=== PATIENT | female | born 1945 | race Caucasian/White ===

== ENCOUNTER 2019-01-16 12:06 | Day surgery (SDC) | payer MEDICARE, OTHER ==
[~2019-01-16] VITALS: Wt 89.1 kg
[~2019-01-16 12:06] MED LIST: ALBU90OI INH; AMLO5 PO; Advil200 M1 PO; BENA20 PO; Dyazide 37.5-21 EACH PO; Hair, Skin & N1 EACH PO; LEVSOD50 PO; METO50ER PO; NASACORT10.8 ML NS; NYSTRITC TOP; PRAM.5; TRAZ150T57
--- NOTE | 2019-01-16 12:38 | NUR ---
01/16/19 1238 Genaro Mcdaniel History, Chart, Medications and Allergies reviewed before start of procedure.MONITOR INTACT WITH CONTINUOUS PULSE OXIMETRY AND INTERMITTENT BP.3-LEAD EKG REVIEWED WITH PHYSICIAN PRIOR TO START OF PROCEDURE.O2 VIA N/C INTACT THROUGHOUT SEDATION/PROCEDURE. Patient confirms NPO status and agrees with scheduled surgery.PATIENT DETERMINED TO BE ASA APPROPRIATE FOR PROPOFOL SEDATION PRIOR TO START OF PROCEDURE BY DR. NSELL.
--- NOTE | 2019-01-16 12:47 | NUR ---
History, Chart, Medications and Allergies reviewed before start of procedure. Patient states colon prep results clear. Patient States Post-Procedure ride home has been arranged.
--- NOTE | 2019-01-16 14:15 | NUR ---
Discharge instructions reviewed with patient. Patient verbalizes understanding. Copy given to patient to take home. Patient States Post-Procedure ride home has been arranged.
== END 2019-01-16 14:15 | disposition home or self-care (01) ==
LOC: ORSCMMR 12:06 → ORD 13:00 → ORSCMMR 13:00
PROVIDERS: Internal Medicine Gastroenterology
PROC: 0DBP8ZX Excision of Rectum, Via Natural or Artificial Opening Endoscopic, Diagnostic (ICD-10-PCS; principal; 2019-01-16 13:00)
PROC: 0DBN8ZX Excision of Sigmoid Colon, Via Natural or Artificial Opening Endoscopic, Diagnostic (ICD-10-PCS; principal; 2019-01-16 13:00)
DX: Z12.11 Encounter for screening for malignant neoplasm of colon (principal); Z80.0 Family history of malignant neoplasm of digestive organs; D12.5 Benign neoplasm of sigmoid colon; D12.8 Benign neoplasm of rectum; K57.30 Diverticulosis of large intestine without perforation or abscess without bleeding; K64.8 Other hemorrhoids; I10 Essential (primary) hypertension; E03.9 Hypothyroidism, unspecified; Z87.891 Personal history of nicotine dependence; E66.01 Morbid (severe) obesity due to excess calories; Z68.38 Body mass index [BMI] 38.0-38.9, adult
CPT/HCPCS: 88305; J2250; J2704; J7120

== ENCOUNTER → 2019-12-06 | Outpatient (CLI) | payer MEDICARE, OTHER ==
[2019-12-07 13:19] LABS: Stool Occult Bld Immuno 1 Negative (NEGATIVE)
== END | disposition home or self-care (01) ==
LOC: LAB SHORT 10:17 → LAB EV 10:17
PROVIDERS: Internal Medicine Gastroenterology
DX: Z09 Encounter for follow-up examination after completed treatment for conditions other than malignant neoplasm (principal); Z86.010 Personal history of colon polyps
CPT/HCPCS: G0328

== ENCOUNTER 2020-01-21 09:29 | Day surgery (SDC) | payer MEDICARE, OTHER ==
[2020-01-21 11:12] LABS: Performing Lab VERACYTE; Test Name FNA
== END 2020-01-21 22:46 | disposition home or self-care (01) ==
LOC: US 09:29
PROVIDERS: Internal Medicine
DX: E04.1 Nontoxic single thyroid nodule (principal)
CPT/HCPCS: 10005

== ENCOUNTER 2021-11-10 12:44 | Inpatient (IN) | payer OTHER ==
[~2021-11-10] VITALS: Ht 162.6 cm; Wt 106.6 kg
[2021-11-10 13:25] LABS: PCO2 Venous 65.9 mmHg (38-42); pH Blood Venous 7.25 (7.34-7.37)
[2021-11-10 13:26] LABS: Base Excess Venous 1.5 mmol/L
[2021-11-10 13:30] LABS: BASOPHILS ABSOLUTE AUTO 0.06 K/mm3 (0.00-0.23); BASOPHILS PERCENT AUTO 0 % (0-2); EOSINOPHILS ABSOLUTE AUTO 0.02 K/mm3 (0.00-0.68); EOSINOPHILS PERCENT AUTO 0 % (0-6); Hematocrit 37.5 % (33.0-51.0); Hemoglobin 11.1 g/dL (11.5-16.0); IMMATURE GRAN ABSOLUTE AUTO 0.25 K/mm3 (0.00-0.10); IMMATURE GRAN PERCENT AUTO 2 % (0-1); LYMPHOCYTES ABSOLUTE AUTO 2.02 K/mm3 (0.84-5.20); LYMPHOCYTES PERCENT AUTO 14 % (21-46); MONOCYTES ABSOLUTE AUTO 0.66 K/mm3 (0.16-1.47); MONOCYTES PERCENT AUTO 4 % (4-13); Mean Corpuscular HGB 28.9 pg (26.0-34.0); Mean Corpuscular HGB Conc 29.6 g/dL (31.5-36.5); Mean Corpuscular Volume 98 fL (80-100); Mean Platelet Volume 10.7 fL (9.1-12.4); NEUTROPHILS ABSOLUTE AUTO 11.89 K/mm3 (1.96-9.15); NEUTROPHILS PERCENT AUTO 80 % (41-73); NRBC ABSOLUTE 0.09 K/mm3 (0.00-0.02); NRBC Auto 0.6 /100 WBC (0.0-0.2); Platelet Count 340 K/mm3 (150-400); RDW Coefficient Variation 14.3 % (11.7-14.2); RDW Standard Deviation 50.8 fL (35.1-46.3); Red Blood Cell Count 3.84 M/mm3 (3.80-5.20)
[2021-11-10 13:46] LABS: Alanine Aminotransfer (ALT/SGP 612 U/L (12-78); Albumin, Blood 3.1 g/dL (3.4-5.0); Albumin/Globulin Ratio 0.9 (0.8-1.8); Alk Phos 85 U/L (50-136); Anion Gap 4 mmol/L (6-16); Aspartate Aminotrans (AST/SGOT 762 U/L (12-37); Bilirubin, Total 0.6 mg/dL (0.1-1.0); Blood Urea Nitrogen 23 mg/dL (8-24); Bun/Creatinine Ratio 12.7 (12.0-20.0); CO2, Blood 29 mmol/L (21-32); Calcium, Blood 7.8 mg/dL (8.5-10.1); Chloride, Blood 106 mmol/L (98-108); Creatinine, Blood 1.81 mg/dL (0.40-1.00); Globulin, Blood 3.5 g/dL (2.2-4.0); Glomerular Filtration Rate 27 (60-); Glucose, Blood 150 mg/dL (70-99); Potassium, Blood 5.3 mmol/L (3.5-5.5); Sodium, Blood 139 mmol/L (136-145); Total Protein, Blood 6.6 g/dL (6.4-8.2)
[2021-11-10 13:46] LABS: U Amphetamine Screen Not Detected; U Methamphetamine Screen DETECTED
[2021-11-10 13:47] LABS: U Barbituate Screen Not Detected; U Benzodiazapine Screen Not Detected; U Buprenorphine Screen Not Detected; U Cannabinoids Screen Not Detected; U Cocaine Screen Not Detected; U Methadone Screen Not Detected; U Opiates Screen DETECTED; U Oxycodone Screen DETECTED; U Phencyclidine Screen Not Detected; U Propoxyphene Screen Not Detected
[2021-11-10 13:54] LABS: Ethanol (Alcohol), Blood, Med <3 mg/dL
[2021-11-10 14:18] LABS: Source, Urine Straight Cath
[2021-11-10] MEDS ORDERED: BENAZEPRIL HCL40 M1 PO (14:24)
[2021-11-10] MEDS ORDERED: AMLO10 PO (14:24)
[2021-11-10 14:31] LABS: Appearance, Urine Hazy (Clear); Bilirubin, Urine Neg (Neg); Blood, Urine Neg (Neg); Color, Urine Yellow (P-Yellow); Glucose Qualitative, Urine Neg (Neg); Ketones, Urine Neg (Neg); Leukocyte Esterase, Urine Neg (Neg); Nitrite, Urine Neg (Neg); Protein, Urine 1+ (Neg); Specific Gravity, Urine 1.025 (1.003-1.022); Urobilinogen, Urine NORM (Normal)
[2021-11-10 14:47] LABS: Bacteria Many /hpf; Squamous Epithelial Cells Mod /hpf (Few)
[2021-11-10 15:45] LABS: Base Excess Venous 1.3 mmol/L; Bicarbonate Venous 24.5 mmol/L (24.0-30.0); PCO2 Venous 63.8 mmHg (38-42); pH Blood Venous 7.26 (7.34-7.37)
[2021-11-10 17:33] LABS: Source, Urine Foley catheter
[2021-11-10 17:45] LABS: Appearance, Urine Cloudy (Clear); Bilirubin, Urine Neg (Neg); Blood, Urine 2+ (Neg); Color, Urine Yellow (P-Yellow); Glucose Qualitative, Urine Neg (Neg); Ketones, Urine Neg (Neg); Leukocyte Esterase, Urine 1+ (Neg); Nitrite, Urine Neg (Neg); Protein, Urine 2+ (Neg); Specific Gravity, Urine 1.025 (1.003-1.022); Urobilinogen, Urine 1+ (Normal)
[2021-11-10 18:10] LABS: Amorphous Light (0-Heavy); Bacteria Many /hpf; Granular Casts 0-2 /lpf (0); Hyaline Casts 0-2 /lpf (0-2); Squamous Epithelial Cells Many /hpf (Few)
--- NOTE | 2021-11-10 18:39 | NUR ---
PT TO ICU ROOM 7 FROM ED. PT ARRIVES ON BIPAP 07/24, 30%. PT ALERT TO VERBAL STIMULATION, ALERT TO SELF/SITUATION, ABLE TO FOLLOW COMMANDS. PT HAS BREANNA DRAIN TO MIDLINE BACK WITH SANGUINEOUS FLUID, DRESSING CHANGED D/T ROZINA BLOOD SOAKED THROUGH. LOW MIDLINE INCISION FROM LUMBAR FUSION (S1-L4) ON 11/09/21, DRESSING C/D/I. ROPIVACAINE PUMP TO MIDBACK. PER PT'S DAUGHTER AND ADMITTING DOCTORS PT HAD OUTPATIENT LUMBAR FUSION SURGERY YESTERDAY. DAUGHTER INSTRUCTED BY DR. ABDI ([facility]) TO REMOVE BREANNA DRAIN AND ROPIVACAINE PUMP ON 11/15 AND COVER INCISION "WITH BANDAID". 2+PITTING EDEMA TO BILATERAL FEET AND PERIORBITAL, PER PT'S DAUGHTER PT HAS HAD FACIAL SWELLING FOLLOWING HER SURGERY YESTERDAY. TEMP MONAHAN PLACED, CLOUDY URINARY OUTPUT. PT FEBRILE, TMAX 100.4.
[2021-11-10 19:17] LABS: Base Excess Venous 0.3 mmol/L; Bicarbonate Venous 24.7 mmol/L (24.0-30.0); PCO2 Venous 40.1 mmHg (38-42); PO2 Venous 158 mmHg (38-42)
[2021-11-10 20:21] LABS: Albumin, Blood 2.8 g/dL (3.4-5.0); Bilirubin, Total 0.3 mg/dL (0.1-1.0); Calcium, Blood 7.1 mg/dL (8.5-10.1); Globulin, Blood 2.9 g/dL (2.2-4.0); Potassium, Blood 4.4 mmol/L (3.5-5.5); Total Protein, Blood 5.7 g/dL (6.4-8.2)
--- NOTE | 2021-11-10 21:22 | NUR ---
ASSUMED CARE OF MERRITT AT 1900, SHE WAS LYING IN BED WITH MOANING RESPIRATIONS, ON NASAL CANNULA AT 5L. BACK WITH DRESSING C/D/I AND BREANNA DRAIN IN PLACE. ROPIVICAINE PAIN PUMP IN PLACE, BALL FULL. PT TRYING TO ASSIST WITH CARE, ASKING ABOUT URINATION, REMINDED SHE HAS A CATHETER. THE PRECEDEX WAS STARTED @ 1946 ON 0.2, BIPAP 12/5 RATE 12 40% AT 2019. PT CALLED AT 2029 TO SAY SHE WANTED THE MASK OFF, PRECEDEX INCREASED TO 0.4 TO HELP. PT CALLED AGAIN AT 2039 TO SAY THAT SHE DEFINITELY WANTED THE MASK OFF. CALLED TO R/T TACO TO UPDATE. PT IS ABLE TO ANSWER QUESTIONS APPROPRIATELY, GETS CONFUSED TO WHETHER SHE IS IN [place] OR [place], HER SURGERY WAS IN [place] YESTERDAY. REORIENTS EASILY. ASSISTS WITH TURNING AND CARE.
--- NOTE | 2021-11-10 23:46 | NUR ---
MERRITT REMAINS SLEEPY, BUT ADMITTEDLY ANXIOUS. ON PRECEDEX AT 0.4MCG/KG, SATS DROPPING WHEN SHE SLEEPS, WON'T LET US PUT ON THE BIPAP, BUT NRB @ 10L PLACED FOR LOW 80%. SHE IS ON HER BACK, BY HER REQUEST. CONTINUES WITH SWABS FOR MOISTENING HER MOUTH. LUNGS REMAIN WITH SCATTERED WHEEZE EXPIRATORY AND RHONCHI ON INSPIRATION.
--- NOTE | 2021-11-11 00:56 | NUR ---
MERRITT CONTINUES TO TRY TO REMOVE HER OXYGEN. SHE KEEPS TELLING ME SHE WANTS TO GO HOME. THE BED IS IN THE CHAIR POSITION AND SHE IS HAPPY WITH THAT. SHE HAS THE CALL LIGHT IN HER LAP. SHE HAS AUDIBLE RALES, COUGH THAT IS NON PRODUC TIVE. SHE CONTINUES TO BE RESTLESS, SAYS THAT SHE HAS RESTLESS LEG SYNDROME. POSITIVE REINFORCEMENT AND THERAPEUTIC LISTENING.
--- NOTE | 2021-11-11 03:17 | NUR ---
PT BOTHERED BY HER RESTLESS LEGS, SAYS SHE USES SALON PAS CREAM AT HOME. CHECKED WITH PHARMACY, WE DON'T HAVE ANYTHING OF THAT NATURE, ASKED HER IF SHE USES A MENTHOL CREAM AND SHE DENIED. ASSISTING WITH HER REPOSITIONING OFTEN. EMPTIED HER BREANNA DRAIN, FRESH RED BLOOD 50ML.
[2021-11-11 03:20] LABS: BASOPHILS ABSOLUTE AUTO 0.03 K/mm3 (0.00-0.23); BASOPHILS PERCENT AUTO 0 % (0-2); EOSINOPHILS ABSOLUTE AUTO 0.07 K/mm3 (0.00-0.68); EOSINOPHILS PERCENT AUTO 1 % (0-6); Hematocrit 29.6 % (33.0-51.0); Hemoglobin 9.1 g/dL (11.5-16.0); IMMATURE GRAN ABSOLUTE AUTO 0.07 K/mm3 (0.00-0.10); IMMATURE GRAN PERCENT AUTO 1 % (0-1); LYMPHOCYTES ABSOLUTE AUTO 1.82 K/mm3 (0.84-5.20); LYMPHOCYTES PERCENT AUTO 21 % (21-46); MONOCYTES ABSOLUTE AUTO 0.58 K/mm3 (0.16-1.47); MONOCYTES PERCENT AUTO 7 % (4-13); Mean Corpuscular HGB 29.7 pg (26.0-34.0); Mean Corpuscular HGB Conc 30.7 g/dL (31.5-36.5); Mean Corpuscular Volume 97 fL (80-100); Mean Platelet Volume 10.6 fL (9.1-12.4); NEUTROPHILS ABSOLUTE AUTO 6.05 K/mm3 (1.96-9.15); NEUTROPHILS PERCENT AUTO 70 % (41-73); NRBC ABSOLUTE 0.05 K/mm3 (0.00-0.02); NRBC Auto 0.6 /100 WBC (0.0-0.2); Platelet Count 193 K/mm3 (150-400); RDW Coefficient Variation 14.4 % (11.7-14.2); RDW Standard Deviation 50.1 fL (35.1-46.3); Red Blood Cell Count 3.06 M/mm3 (3.80-5.20); White Blood Cell Count 8.62 K/mm3 (4.00-11.30)
[2021-11-11 03:51] LABS: Albumin, Blood 2.6 g/dL (3.4-5.0); Albumin/Globulin Ratio 0.9 (0.8-1.8); Bilirubin, Total 0.4 mg/dL (0.1-1.0); Bun/Creatinine Ratio 15.5 (12.0-20.0); Calcium, Blood 7.1 mg/dL (8.5-10.1); Creatinine, Blood 1.55 mg/dL (0.40-1.00); Globulin, Blood 2.8 g/dL (2.2-4.0); Potassium, Blood 4.2 mmol/L (3.5-5.5); Total Protein, Blood 5.4 g/dL (6.4-8.2)
[2021-11-11 03:58] LABS: Base Excess Venous 0 mmol/L; Bicarbonate Venous 23.7 mmol/L (24.0-30.0); PCO2 Venous 65.8 mmHg (38-42); PO2 Venous 67.3 mmHg (38-42)
[2021-11-11 03:59] LABS: pH Blood Venous 7.23 (7.34-7.37)
--- NOTE | 2021-11-11 04:01 | NUR ---
MERRITT SWITCHED TO HIFL NC AT 12L PER HER REQUESTS. SHE SAYS THE MASK IS MISERABLE, SHE HAS A STUFFY NOSE AND SHE CAN'T BREATHE WITH THE MASK. SHE IS TOLERATING THE HFNC MUCH BETTER, ALTHOUGH SHE WILL HOLD HER BREATH, ADMITTEDLY AND THEN HER SATS DROP TIL SHE IS BOTHERED BY THIS RN. BP REMAINS LABILE. COUGH CONTINUES, NON PRODUCTIVE. RESTLESSNESS CONTINUES. PRECEDEX CONTINUES AT 0.4MCG/KG.
--- NOTE | 2021-11-11 04:51 | NUR ---
CALL TO RELATED TO VBG RESULTS, INCREASING PRECEDEX TO 0.7MCG/KG AND PUTTING HER BACK ON BIPAP 07/24, RATE 12/ 40%. GAVE A DOSE OF FENTANYL FOR HER DISCOMFORT WELL. ASKED HER TO TRY TO WEAR THIS LONG POSSIBLE. RT TACO GAVE HER THE REASONS FOR THE BIPAP AND WHY SHE NEEDS TO WEAR IT LONG POSSIBLE.
--- NOTE | 2021-11-11 05:38 | NUR ---
PT TOLERATING THE BIPAP AT THIS TIME, DID NORIS AT ME TO GET SOMETHING FOR HER RESTLESS LEGS, WANTS TO CALL HER TO BRING IN HER HOME MED. I ASKED IF WE COULD WAIT A BIT LONGER SINCE IT IS SO EARLY IN THE MORNING. SHE AGREED. WILL CONTINUE TO MONITOR AND TREAT ACCORDINGLY.
--- NOTE | 2021-11-11 09:25 | NUR ---
FAMILY UPDATE/DR WALTERS PT DAUGHTER HOPE AND UPDATED AT BEDSIDE BY RN AND DR WALTERS. PT OFF BIPAP, PLACED ON 4L O2 NC. PRECEDEX PLACED ON STANDBY. PT TOLERATING WELL AND ENGAGING IN CONVERSATION. PT MADE PCU STATUS NOW. WILL CONTINUE TO MONITOR.
--- NOTE | 2021-11-11 09:44 | NUR ---
Spiritual Care Visit. Pt. requested spiritual care. Pt. is awake in bed with daughter present. Pt. welcomes my visit. Pt. is unsettled about her post-surgery ICU admittance. Listened empathetically and established rapport. Pt. verbalized her spiritual condition. Explored issuses of marcos and belief. Pt. displayed evidence of reduced stress. Prayed with Pt. Pt. and daughter both verbalize gratitude for the spiritual care visit.
--- NOTE | 2021-11-11 11:15 | NUR ---
TRANSFER TO PCU PT TAKEN TO PCU ROOM 5 VIA BED. REPORT CALLED AND ALL QUESTIONS ANSWERED. ALL PT BELONGINGS AND MEDS SENT WITH PT.
--- NOTE | 2021-11-11 18:49 | NUR ---
PCU ARRIVAL / SHIFT SUMMARY PT BROUGHT TO PCU-05 FROM ICU @ APPROX 1120. PT A&O X3. SPO2 > 92% ON 4L NC. MONITOR SHOWING SR-ST, HR 80s-130s. PT BP ELEVATED. PT RESTLESS IN BED, MOVING AROUND FREQUENTLY, TANGLING SELF IN CORDS. PT LUMBAR DRESSING REPLACED D/T BREANNA PUNCTURE SITE OOZING & PT FREQUENT REPOSITIONING SELF CAUSING DRESSING TO LOSE ADHERANCE. BREANNA DRAIN TO PT BACK W/ RED OUTPUT. ROPIVICAINE ON-Q PAIN PUMP IN PLACE TO PT's BACK. PT REPORTING PAIN 9-10/10 THIS SHIFT W/ BRIEF IMPROVEMENT TO 6/10 W/ PRN IV FENTANYL PER EMAR. CALL TO MD ISTRATE TO REPORT PT PAIN LEVEL & ELEVATED BP W/ MD ORDER FOR PO HOME BP MEDICATIONS & PRN PO HYDRALAZINE & INCREASE PRN IV FENTANYL FREQUENCY (SEE ORDERS). PT MONAHAN CATH IN PLACE, STATLOCK REPLACED D/T STATLOCK BREAKING DURING PT RESTLESSNESS. PT ADVANCED TO REGULAR DIET TODAY BY SPEECH THERAPY. PT TOLERATING PO INTAKE WELL. REPORT GIVEN TO CORD MAKER RN ASSUMING CARE OF PT.
--- NOTE | 2021-11-12 03:31 | NUR ---
ANGELY RN ON LUNCH; PATIENT CALLED TO REPORT PAIN IN BACK; FENTANYL NOT AVAILABLE AT THE TIME FOR ALMOST ANOTHER HOUR; CALL PLACED TO HOSPITALIST; ORDERS FOR PO OXYCODONE 5-10 MG Q4 PRN FOR MODERATE PAIN
--- NOTE | 2021-11-12 06:04 | NUR ---
SHIFT SUMMARY: PATIENT'S PAIN UNCONTROLLED OVERNIGHT. FENTANYL GIVEN Q2H WITH LAST DOSE GIVEN 02:35. PT REPORTS THAT IT DIDN'T HELP AND REQUESTED PO PAIN MEDS. AN ORDER FOR OXYCODONE WAS OBTAINED AND AFTER 2 HRS PATIENT WAS AGAIN STRUGGLING WITH UNBEARABLE PAIN. ALSO, THE ON-QUE PAIN PUMP CAME OUT AT APPROXIMATELY 01:30. ONE DOSE OF HYDRALAZINE WAS GIVEN EARLY IN SHIFT FOR ELEVATED BP PER ORDER AND BP WAS STABLE FOR THE REST OF THE NIGHT. PT HR INCREASES WITH PAIN AND IS WNL FOLLOWING MED MED ADMINISTRATION. PT CONTINUES TO EXHIBIT PERIORBITAL EDEMA. BREANNA DRAIN DRESSING WAS SATURATED AND CHANGED OVERNIGHT. PT REMAINED ALERT AND ORIENTED, RR WNL AND O2 SAT WNL ON 5L NC.
[2021-11-12 06:05] LABS: BASOPHILS ABSOLUTE AUTO 0.05 K/mm3 (0.00-0.23); BASOPHILS PERCENT AUTO 0 % (0-2); EOSINOPHILS ABSOLUTE AUTO 0.08 K/mm3 (0.00-0.68); EOSINOPHILS PERCENT AUTO 1 % (0-6); Hematocrit 30.6 % (33.0-51.0); Hemoglobin 9.3 g/dL (11.5-16.0); IMMATURE GRAN ABSOLUTE AUTO 0.24 K/mm3 (0.00-0.10); IMMATURE GRAN PERCENT AUTO 2 % (0-1); LYMPHOCYTES ABSOLUTE AUTO 1.49 K/mm3 (0.84-5.20); LYMPHOCYTES PERCENT AUTO 13 % (21-46); MONOCYTES ABSOLUTE AUTO 0.53 K/mm3 (0.16-1.47); MONOCYTES PERCENT AUTO 5 % (4-13); Mean Corpuscular HGB 29.1 pg (26.0-34.0); Mean Corpuscular HGB Conc 30.4 g/dL (31.5-36.5); Mean Corpuscular Volume 96 fL (80-100); Mean Platelet Volume 10.2 fL (9.1-12.4); NEUTROPHILS ABSOLUTE AUTO 8.92 K/mm3 (1.96-9.15); NEUTROPHILS PERCENT AUTO 79 % (41-73); NRBC ABSOLUTE 0.06 K/mm3 (0.00-0.02); NRBC Auto 0.5 /100 WBC (0.0-0.2); Platelet Count 207 K/mm3 (150-400); RDW Coefficient Variation 14.1 % (11.7-14.2); RDW Standard Deviation 49.1 fL (35.1-46.3); White Blood Cell Count 11.31 K/mm3 (4.00-11.30)
[2021-11-12 06:23] LABS: Alanine Aminotransfer (ALT/SGP 569 U/L (12-78); Albumin, Blood 2.7 g/dL (3.4-5.0); Albumin/Globulin Ratio 0.8 (0.8-1.8); Alk Phos 78 U/L (50-136); Anion Gap 8 mmol/L (6-16); Aspartate Aminotrans (AST/SGOT 365 U/L (12-37); Bilirubin, Total 0.4 mg/dL (0.1-1.0); Blood Urea Nitrogen 11 mg/dL (8-24); Bun/Creatinine Ratio 23.9 (12.0-20.0); CO2, Blood 28 mmol/L (21-32); Calcium, Blood 7.7 mg/dL (8.5-10.1); Chloride, Blood 108 mmol/L (98-108); Creatinine, Blood 0.46 mg/dL (0.40-1.00); Globulin, Blood 3.2 g/dL (2.2-4.0); Glomerular Filtration Rate >60 (60-); Glucose, Blood 111 mg/dL (70-99); Magnesium, Blood 2.1 mg/dL (1.6-2.4); Phosphorus, Blood 1.8 mg/dL (2.5-4.9); Potassium, Blood 3.7 mmol/L (3.5-5.5); Sodium, Blood 144 mmol/L (136-145); Total Protein, Blood 5.9 g/dL (6.4-8.2)
--- NOTE | 2021-11-12 11:02 | NUR ---
CALL TO NEUROSPINE OFFICE CALL MADE TO NEUROSPINE OFFICE OF DR ABDI TO REPORT PT PAIN PUMP NO LONGER INTACT. INDUSTRIAL GARAGE SERVICER PROVIDER BOBBI, STATING MEDICATION SHOULD HAVE BEEN ALMOST GONE AT THIS POINT & GAVE INSTRUCTION TO DISCARD MEDICATION/PUMP & DRESS 2 SITES W/ BANDAID. LOCAL HOSPITALIST, ISTRATE MADE AWARE OF PUMP NO LONGER IN PLACE WELL. CALL TO PHARMACY FOR PROPER MEDICATION/PUMP DISPOSAL & MEDICATION DISPOSED OF ACCORDINGLY W/ 2ND NURSE WITNESS.
--- NOTE | 2021-11-12 18:45 | NUR ---
SHIFT SUMMARY PT A&O X4. PT VSS. SPO2 > 92% ON 5L NC. MONITOR SHOWING SR-ST, HR 80's-110's. PT MEDICATED FOR BACK PAIN W/ PRN IV FENTANYL X1 & PRN PO OXYCODONE X2 THIS SHIFT PER EMAR/PT REQUEST W/ PT REPORT OF IMPROVEMENT. PT NO LONGER RESTLESS IN BED THIS SHIFT & PT ABLE TO SLEEP MORE SOUNDLY. PT FAMILY AT BEDSIDE INTERMITTENTLY T/O SHIFT. PT ABLE TO STAND AND AMBULATE TO CHAIR FOR BREAKFAST & LUNCH TODAY. BREANNA DRAIN TO PT BACK CONTINUES TO OOZE, REQUIRING DRESSING CHANGES X2 THIS SHIFT W/ PINK/RED DRAINAGE NOTED IN BREANNA DRAIN & ON DRESSING & PAD UNDER PT. PT PAIN PUMP DISPOSED OF THIS SHIFT (SEE PREVIOUS NOTE). NO OTHER EVENTS. WILL CONTINUE TO MONITOR & PROVIDE CARE UNTIL REPORT OFF TO RETAIL COORDINATOR RN.
--- NOTE | 2021-11-12 22:59 | NUR ---
2230- THIS RN ROUNDED ON PT AND FOUND PT HAD PULLED OUT BREANNA DRAIN. VITALS OBTAINED, NEURO ASSESSMENT COMPLETED AND WNL. PT REPORTS NO PAIN AND NO CHANGE IN SENSATION. NOTIFIED ON-CALL PROVIDER GISELE VUONG. ALSO NOTIFIED PROVIDER OF INCREASED O2 DEMANDS TO 8L FROM EARLIER IN SHIFT. NO NEW ORDERS AT THIS TIME.
[2021-11-13 04:34] LABS: BASOPHILS ABSOLUTE AUTO 0.04 K/mm3 (0.00-0.23); BASOPHILS PERCENT AUTO 0 % (0-2); EOSINOPHILS ABSOLUTE AUTO 0.15 K/mm3 (0.00-0.68); EOSINOPHILS PERCENT AUTO 2 % (0-6); Hematocrit 31.9 % (33.0-51.0); Hemoglobin 9.5 g/dL (11.5-16.0); IMMATURE GRAN ABSOLUTE AUTO 0.13 K/mm3 (0.00-0.10); IMMATURE GRAN PERCENT AUTO 1 % (0-1); LYMPHOCYTES ABSOLUTE AUTO 1.39 K/mm3 (0.84-5.20); LYMPHOCYTES PERCENT AUTO 14 % (21-46); MONOCYTES ABSOLUTE AUTO 0.53 K/mm3 (0.16-1.47); MONOCYTES PERCENT AUTO 5 % (4-13); Mean Corpuscular HGB 28.8 pg (26.0-34.0); Mean Corpuscular HGB Conc 29.8 g/dL (31.5-36.5); Mean Corpuscular Volume 97 fL (80-100); Mean Platelet Volume 10.4 fL (9.1-12.4); NEUTROPHILS ABSOLUTE AUTO 7.59 K/mm3 (1.96-9.15); NEUTROPHILS PERCENT AUTO 77 % (41-73); NRBC ABSOLUTE 0.05 K/mm3 (0.00-0.02); NRBC Auto 0.5 /100 WBC (0.0-0.2); Platelet Count 242 K/mm3 (150-400); RDW Coefficient Variation 14.3 % (11.7-14.2); RDW Standard Deviation 50.4 fL (35.1-46.3); White Blood Cell Count 9.83 K/mm3 (4.00-11.30)
[2021-11-13 04:52] LABS: Alanine Aminotransfer (ALT/SGP 424 U/L (12-78); Albumin, Blood 2.6 g/dL (3.4-5.0); Albumin/Globulin Ratio 0.8 (0.8-1.8); Alk Phos 86 U/L (50-136); Anion Gap 2 mmol/L (6-16); Aspartate Aminotrans (AST/SGOT 157 U/L (12-37); Bilirubin, Total 0.3 mg/dL (0.1-1.0); Blood Urea Nitrogen 8 mg/dL (8-24); Bun/Creatinine Ratio 18.5 (12.0-20.0); CO2, Blood 34 mmol/L (21-32); Calcium, Blood 7.9 mg/dL (8.5-10.1); Chloride, Blood 109 mmol/L (98-108); Creatinine, Blood 0.43 mg/dL (0.40-1.00); Globulin, Blood 3.2 g/dL (2.2-4.0); Glomerular Filtration Rate >60 (60-); Glucose, Blood 120 mg/dL (70-99); Magnesium, Blood 2.2 mg/dL (1.6-2.4); Phosphorus, Blood 2.2 mg/dL (2.5-4.9); Potassium, Blood 3.8 mmol/L (3.5-5.5); Sodium, Blood 145 mmol/L (136-145); Total Protein, Blood 5.8 g/dL (6.4-8.2)
--- NOTE | 2021-11-13 06:51 | NUR ---
SHIFT SUMMARY [id number] PT SLEPT WELL OVERNIGHT, LETHARGIC AT BEGINNING OF SHIFT BUT ALERTS TO VOICE AND ORIENTED. RESTLESS IN BED, SOME BACK PAIN AND PRNS GIVEN. ESCALATED FROM 5-8L HFNC OVERNIGHT AND REFUSING CPAP/BIPAP PER RT. PT ALSO PULLED OUT LUMBAR DRAIN WHEN ROLLING AROUND IN BED. ON-CALL PROVIDER NOTIFIED (SEE PREVIOUS NOTE BY THIS RN). VSS PER PT TREND, SR/ST ON TELEMETRY. WILL CONTINUE TO MONITOR AND PASS ON TO DAY RN
[2021-11-13] MEDS ORDERED: AMOCLA875 PO (12:11)
[2021-11-13] MEDS ORDERED: AZIT500 PO (12:12)
[2021-11-13] MEDS ORDERED: METO50ER PO (12:13)
[2021-11-13] MEDS ORDERED: ONDA4ODT MM (12:14)
[2021-11-13] MEDS ORDERED: OXYC5 PO (12:16)
[2021-11-13] MEDS ORDERED: Phospha 250 Ne250 MG PO (12:26)
[2021-11-13] MEDS ORDERED: PRAM.125 PO (12:28)
[2021-11-13] MEDS ORDERED: VISBIOME 112.51 EACH PO (12:29)
--- NOTE | 2021-11-13 13:59 | NUR ---
PT DISCHARGE TO HOME WITH DISCHARGE ORDERS, HOME HEALTH ORDERS SENT TO [facility], O2 EVAL DONE PT REQUIRING 3L OF O2 AT REST AND 5L WITH EXERTION SATS STAYS ABOVE 90%. BP SYSTLOIC WAS ELEVATED AT 180'S THIS MORNING AFTER MORNING BP MEDS WAS GIVEN AND PAIN MEDS SYSTOLIC WENT DOWN TO 150'S, DR BRIGHT AWARE. DRESSING ON BACK WAS CHANGED THIS MORNING WELL. DISCHARGE INSTRUCTIONS AND NEW MEDICATIONS DISCLOSED WITH THE DAUGHTER AT BEDSIDE AND PT WELL BOTH VERBALIZED UNDERSTANDING, PRESCRIPTIONS SENT TO [facility], NARCOTICS HARD SCRIPT SENT HOME WITH THE PT. BACK BRACE IN [place] WHEN PT OOB, CAN STAND AND AMBULATE WITH THE WALKER. NO OTHER ISSUES REPORTED PRIOR TO DISCHARGE. PT TO FF-UP WITH PCP WITHIN A WEEK AND PT HAS ALREADY UPCOMING BACK SURGERY APPT. ACCOMPANIED PT VIA WHEELCHAIR TO TRANSPORT, ALL BELONGINGS SENT WITH THE PT
[2021-11-15 00:08] LABS: HBSAG SCREEN Negative (Negative); HCV AB <0.1 (0.0-0.9); HEP A AB, IGM Negative (Negative); HEP B CORE AB, TOT Negative (Negative)
== END 2021-11-13 13:34 | disposition home health service (06) | DRG 871 ==
LOC: ER 12:44 → ICUE 16:46 → PCU 16:46 → ICUE 16:50 → PCU 11-11 11:33
PROVIDERS: Emergency Medicine; Family Medicine; Internal Medicine Critical Care Medicine; Nurse Practitioner Acute Care; ADMIT Internal Medicine
PROC: 3E03329 Introduction of Other Anti-infective into Peripheral Vein, Percutaneous Approach (ICD-10-PCS; principal; 2021-11-10)
PROC: 5A09357 Assistance with Respiratory Ventilation, Less than 24 Consecutive Hours, Continuous Positive Airway Pressure (ICD-10-PCS; 2021-11-10)
DX: A41.9 Sepsis, unspecified organism (principal); J18.9 Pneumonia, unspecified organism; J69.0 Pneumonitis due to inhalation of food and vomit; G93.41 Metabolic encephalopathy; R65.21 Severe sepsis with septic shock; J96.02 Acute respiratory failure with hypercapnia; N17.9 Acute kidney failure, unspecified; E87.2 Acidosis; Z68.42 Body mass index [BMI] 45.0-49.9, adult; J44.0 Chronic obstructive pulmonary disease with (acute) lower respiratory infection; Z66 Do not resuscitate; F11.10 Opioid abuse, uncomplicated; F15.10 Other stimulant abuse, uncomplicated; E66.01 Morbid (severe) obesity due to excess calories; J32.3 Chronic sphenoidal sinusitis; E83.39 Other disorders of phosphorus metabolism; Z98.1 Arthrodesis status; I10 Essential (primary) hypertension; R74.01 Elevation of levels of liver transaminase levels; E03.9 Hypothyroidism, unspecified; G25.81 Restless legs syndrome; K76.0 Fatty (change of) liver, not elsewhere classified; Z90.710 Acquired absence of both cervix and uterus; Z98.890 Other specified postprocedural states; Z79.51 Long term (current) use of inhaled steroids; Z79.899 Other long term (current) drug therapy
CPT/HCPCS: 36415; 51703; 70450; 71045; 80053; 81001; 82140; 82803; 82947; 83605; 83735; 83880; 84100; 84145; 84443; 85025; 86140; 86704; 86708; 86803; 87040; 87086; 87340; 92610; 93005; 93010; 94660; 94760; 94761; 94762; 96365; 96375; 99285-25; A9270; C1751; G0480; J0295; J0456; J2543; J3010; J7030; J7050; J7060; J7120

== ENCOUNTER 2021-11-18 10:53 | Emergency (ER) | payer OTHER ==
[~2021-11-18] VITALS: Ht 152.4 cm; Wt 108.9 kg
[~2021-11-18 10:53] MED LIST changes: +AMLO10 PO; +AMOCLA875 PO; +AZIT500 PO; +BENAZEPRIL HCL40 M1 PO; +ONDA4ODT MM; +OXYC5 PO; +PRAM.125 PO; +Phospha 250 Ne250 MG PO; +VISBIOME 112.51 EACH PO
[2021-11-18 11:46] LABS: BASOPHILS ABSOLUTE AUTO 0.06 K/mm3 (0.00-0.23); BASOPHILS PERCENT AUTO 1 % (0-2); EOSINOPHILS ABSOLUTE AUTO 0.21 K/mm3 (0.00-0.68); EOSINOPHILS PERCENT AUTO 2 % (0-6); Hematocrit 34.9 % (33.0-51.0); Hemoglobin 10.5 g/dL (11.5-16.0); IMMATURE GRAN ABSOLUTE AUTO 0.16 K/mm3 (0.00-0.10); IMMATURE GRAN PERCENT AUTO 2 % (0-1); LYMPHOCYTES PERCENT AUTO 24 % (21-46); MONOCYTES ABSOLUTE AUTO 0.69 K/mm3 (0.16-1.47); MONOCYTES PERCENT AUTO 7 % (4-13); Mean Corpuscular HGB 28.6 pg (26.0-34.0); Mean Corpuscular HGB Conc 30.1 g/dL (31.5-36.5); Mean Corpuscular Volume 95 fL (80-100); Mean Platelet Volume 10.4 fL (9.1-12.4); NEUTROPHILS ABSOLUTE AUTO 6.85 K/mm3 (1.96-9.15); NEUTROPHILS PERCENT AUTO 65 % (41-73); Platelet Count 344 K/mm3 (150-400); RDW Coefficient Variation 14.3 % (11.7-14.2); RDW Standard Deviation 49.4 fL (35.1-46.3); Red Blood Cell Count 3.67 M/mm3 (3.80-5.20); White Blood Cell Count 10.47 K/mm3 (4.00-11.30)
[2021-11-18 12:14] LABS: Alanine Aminotransfer (ALT/SGP 76 U/L (12-78); Albumin, Blood 2.9 g/dL (3.4-5.0); Albumin/Globulin Ratio 0.8 (0.8-1.8); Alk Phos 85 U/L (50-136); Anion Gap 8 mmol/L (6-16); Aspartate Aminotrans (AST/SGOT 20 U/L (12-37); Bilirubin, Total 0.3 mg/dL (0.1-1.0); Blood Urea Nitrogen 6 mg/dL (8-24); Bun/Creatinine Ratio 11.2 (12.0-20.0); CO2, Blood 36 mmol/L (21-32); Calcium, Blood 8.8 mg/dL (8.5-10.1); Chloride, Blood 97 mmol/L (98-108); Creatinine, Blood 0.54 mg/dL (0.40-1.00); Globulin, Blood 3.6 g/dL (2.2-4.0); Glomerular Filtration Rate >60 (60-); Glucose, Blood 111 mg/dL (70-99); Potassium, Blood 3.9 mmol/L (3.5-5.5); Sodium, Blood 141 mmol/L (136-145); Total Protein, Blood 6.5 g/dL (6.4-8.2)
[2021-11-18 14:41] LABS: Source, Urine Clean Catch
[2021-11-18 14:44] LABS: Appearance, Urine Clear (Clear); Bilirubin, Urine Neg (Neg); Blood, Urine Neg (Neg); Color, Urine Yellow (P-Yellow); Glucose Qualitative, Urine Neg (Neg); Ketones, Urine Neg (Neg); Leukocyte Esterase, Urine Neg (Neg); Nitrite, Urine Neg (Neg); Protein, Urine Neg (Neg); Specific Gravity, Urine 1.015 (1.003-1.022); Urobilinogen, Urine NORM (Normal)
== END 2021-11-18 15:40 | disposition home or self-care (01) ==
LOC: ER 10:53
PROVIDERS: Physician Assistant
DX: C34.91 Malignant neoplasm of unspecified part of right bronchus or lung (principal); Z79.899 Other long term (current) drug therapy
CPT/HCPCS: 36415; 71045; 71260; 80053; 81003; 83735; 85025; 99285-25; A9270; Q9967

== ENCOUNTER 2022-01-10 18:01 | Emergency (ER) | payer OTHER ==
[~2022-01-10] VITALS: Ht 154.9 cm; Wt 90.3 kg
[2022-01-10 18:43] LABS: BASOPHILS ABSOLUTE AUTO 0.06 K/mm3 (0.00-0.23); BASOPHILS PERCENT AUTO 1 % (0-2); EOSINOPHILS ABSOLUTE AUTO 0.25 K/mm3 (0.00-0.68); EOSINOPHILS PERCENT AUTO 2 % (0-6); Hematocrit 41.7 % (33.0-51.0); Hemoglobin 13.5 g/dL (11.5-16.0); IMMATURE GRAN ABSOLUTE AUTO 0.07 K/mm3 (0.00-0.10); IMMATURE GRAN PERCENT AUTO 1 % (0-1); LYMPHOCYTES ABSOLUTE AUTO 3.33 K/mm3 (0.84-5.20); LYMPHOCYTES PERCENT AUTO 31 % (21-46); MONOCYTES ABSOLUTE AUTO 0.54 K/mm3 (0.16-1.47); MONOCYTES PERCENT AUTO 5 % (4-13); Mean Corpuscular HGB 27.6 pg (26.0-34.0); Mean Corpuscular HGB Conc 32.4 g/dL (31.5-36.5); Mean Corpuscular Volume 85 fL (80-100); Mean Platelet Volume 10.1 fL (9.1-12.4); NEUTROPHILS ABSOLUTE AUTO 6.59 K/mm3 (1.96-9.15); NEUTROPHILS PERCENT AUTO 61 % (41-73); Platelet Count 392 K/mm3 (150-400); RDW Coefficient Variation 14.7 % (11.7-14.2); Red Blood Cell Count 4.89 M/mm3 (3.80-5.20); White Blood Cell Count 10.84 K/mm3 (4.00-11.30)
[2022-01-10 19:03] LABS: Albumin, Blood 3.8 g/dL (3.4-5.0); Bilirubin, Total 0.5 mg/dL (0.1-1.0); Bun/Creatinine Ratio 40.2 (12.0-20.0); Calcium, Blood 9.3 mg/dL (8.5-10.1); Creatinine, Blood 0.65 mg/dL (0.40-1.00); Potassium, Blood 4.1 mmol/L (3.5-5.5); Total Protein, Blood 7.8 g/dL (6.4-8.2)
[2022-01-10 19:18] LABS: Source, Urine Clean Catch
[2022-01-10 19:24] LABS: Appearance, Urine Clear (Clear); Bilirubin, Urine Neg (Neg); Blood, Urine Neg (Neg); Color, Urine Yellow (P-Yellow); Glucose Qualitative, Urine Neg (Neg); Ketones, Urine Neg (Neg); Leukocyte Esterase, Urine Neg (Neg); Nitrite, Urine Neg (Neg); Protein, Urine 1+ (Neg); Urobilinogen, Urine NORM (Normal)
[2022-01-10] MEDS ORDERED: METPRE4DP PO (21:34)
[2022-01-10] MEDS ORDERED: Robaxin750 MG PO (21:34)
[2022-01-10] MEDS ORDERED: OXYACE7.5T PO (21:34)
== END 2022-01-10 21:48 | disposition home or self-care (01) ==
LOC: ER 18:01
PROVIDERS: Physician Assistant
DX: M54.50 Low back pain, unspecified (principal); Z79.899 Other long term (current) drug therapy; Z98.890 Other specified postprocedural states
CPT/HCPCS: 36415; 72100; 80053; 85025; A9270; J1100; J1170

== ENCOUNTER 2022-01-29 14:27 | Emergency (ER) | payer OTHER ==
[~2022-01-29] VITALS: Ht 154.9 cm; Wt 86.2 kg
[~2022-01-29 14:27] MED LIST changes: +METPRE4DP PO; +OXYACE7.5T PO; +Robaxin750 MG PO
== END 2022-01-29 18:10 | disposition home or self-care (01) ==
LOC: ER 14:27
DX: M48.54XA Collapsed vertebra, not elsewhere classified, thoracic region, initial encounter for fracture (principal); M54.40 Lumbago with sciatica, unspecified side; Z79.899 Other long term (current) drug therapy
CPT/HCPCS: J1885

== ENCOUNTER 2022-02-02 10:33 | Inpatient (IN) | payer OTHER ==
[~2022-02-02] VITALS: Ht 154.9 cm; Wt 87.6 kg
[2022-02-02 13:55] LABS: Influenza A, PCR NEGATIVE (NEGATIVE); Influenza B, PCR NEGATIVE (NEGATIVE); Resp Syncytial Virus, PCR NEGATIVE (NEGATIVE); SARS-Cov-2 (COVID-19) PCR, MMC NEGATIVE (NEGATIVE)
[2022-02-02 15:02] LABS: BASOPHILS ABSOLUTE AUTO 0.04 K/mm3 (0.00-0.23); BASOPHILS PERCENT AUTO 1 % (0-2); EOSINOPHILS ABSOLUTE AUTO 0.17 K/mm3 (0.00-0.68); EOSINOPHILS PERCENT AUTO 2 % (0-6); Hematocrit 40.4 % (33.0-51.0); Hemoglobin 12.4 g/dL (11.5-16.0); IMMATURE GRAN ABSOLUTE AUTO 0.02 K/mm3 (0.00-0.10); IMMATURE GRAN PERCENT AUTO 0 % (0-1); LYMPHOCYTES ABSOLUTE AUTO 2.05 K/mm3 (0.84-5.20); LYMPHOCYTES PERCENT AUTO 26 % (21-46); MONOCYTES ABSOLUTE AUTO 0.63 K/mm3 (0.16-1.47); MONOCYTES PERCENT AUTO 8 % (4-13); Mean Corpuscular HGB 27.3 pg (26.0-34.0); Mean Corpuscular HGB Conc 30.7 g/dL (31.5-36.5); Mean Corpuscular Volume 89 fL (80-100); Mean Platelet Volume 10.3 fL (9.1-12.4); NEUTROPHILS ABSOLUTE AUTO 4.99 K/mm3 (1.96-9.15); NEUTROPHILS PERCENT AUTO 63 % (41-73); Platelet Count 335 K/mm3 (150-400); RDW Coefficient Variation 15.6 % (11.7-14.2); RDW Standard Deviation 50.6 fL (35.1-46.3); Red Blood Cell Count 4.54 M/mm3 (3.80-5.20)
[2022-02-02 15:24] LABS: Albumin/Globulin Ratio 0.9 (0.8-1.8); Bilirubin, Total 0.3 mg/dL (0.1-1.0); Bun/Creatinine Ratio 22.6 (12.0-20.0); Calcium, Blood 8.4 mg/dL (8.5-10.1); Creatinine, Blood 0.53 mg/dL (0.40-1.00); Globulin, Blood 3.3 g/dL (2.2-4.0); Potassium, Blood 2.6 mmol/L (3.5-5.5); Total Protein, Blood 6.3 g/dL (6.4-8.2)
--- NOTE | 2022-02-02 19:26 | NUR ---
SHIFT SUMMARY PATIENT ADMITTED FROM ER FOR INTRACTABLE BACK PAIN. ADMISSION DOCUMENTATION COMPLETED. PUREWICK PLACED. POTASSIUM LOW, MEDICATED PER OCT. RECEIVING IV FLUIDS/ C/O BACK PAIN, MEDICATED PER OCT. ON CONTINUOUS PULSE OX SATING MID 90S ON 2L NC. WHEN NC REMOVED SATS IMMEDIATELY BEGIN TO DROP. VSS. REPORT GIVEN TO ONCOMING RN.
--- NOTE | 2022-02-03 02:48 | NUR ---
PT IS UNABLE TO BE CALMED. SHE IS THRASHING AROUND IN BED. WILL NOT LET STAFF ATTEMPT TO HELP REPOSITION HER OR CHECK HER BRIED. PUREWICK STILL IN PLACE. MEDICATIONS HAVE BEEN GIVEN PER EMAR AND DR HAS BEEN CALLED REGARDING HER EMOTIONAL STATES. ATIVAN GIVEN HAS CAUSED HALLUCINATIONS. PT HAS BECOME QUIETER, BUT IS STILL THRASHING AROUND IN BED AND MOANING. WILL CONTINUE TO MEDICATE PER OCT.
--- NOTE | 2022-02-03 05:14 | NUR ---
SHIFT SUMMARY PT HAS BEEN CRYING OUT IN [AIN THE ENTIRE NIGHT. SHE HAS BEEN MEDICATED WITH ALL MEDICATIONS AVAILABLE PER MAR INCLUDING ONE TIME ATIVAN AND NON SEEMED TO MAKE A DIFFERENCE. THE ATIVAN DID CAUSE HER TO HALLUCINATE AND SHE WAS UNABLE TO REMEMEBR WHERE SHE WAS OR WHAT WAS HAPPENING. SHE HAS BEEN WRITHING IN PAIN IN BED ALL NIGHT UNABLE TO GET COMFORTABLE. IS NOTIFIED, BUT CANNOT PROVIDE ANY OTHER ORDER FOR PAIN ADN RESPIRATIONS DECREASE WITH INCREASED PAIN MEDS. CURRENTLY STILL MEDICATION PER OCT. CALL LIGHT WITHIN REACH
--- NOTE | 2022-02-03 19:07 | NUR ---
SHIFT SUMMARY PATIENT A&OX4. C/O SEVERE PAIN, MEDICATED MULTIPLE TIMES T/O SHIFT WITH VERY LITTLE RELIEF. INCONT OF URINE, PUREWICK IN PLACE. PT WORKED WITH PATIENT. REPORT GIVEN TO ONCOMING RN.
--- NOTE | 2022-02-04 04:40 | NUR ---
SHIFT SUMMARY PT HAS BEEN AB;E TO REST MORE TONIGHT THAN THE NIGHT BEFORE. SHE WAS ONLY MEDICATED 2 TIMES FOR PAIN. PT IS ON 4L SATTING 6%, BUT HAS TROUBLE KEEPING HER NC IN HER NOSE. SHE WILL BECOME CONFUSED AND REMOVE THEM AND THE BI OX PROBE. SHE MUST BE ENCOURAGED TO KEEP THEM ON. PT STILL CONTINUE TO SOAXK THROUGH BRIEFS AND MVOES SO MUCH WHILE IN BED THAT HER PUREWICK AND BRIEF COME OFF AND SHE SAOKS THE MATTRESS. EVEN WITH ABSORBANT PADS IN THE BRIEF AND UNDER HER SHE CAN STILL MOVE OFF OF THEM. NEEDS FRQUENT MONITORING TO MAKE SURE SHE IS STILL WEARING ALL NECESSARY LINES. CALL LIGHT WITHIN REACH
[2022-02-04 08:42] LABS: Anion Gap 10 mmol/L (6-16); Blood Urea Nitrogen 8 mg/dL (8-24); Bun/Creatinine Ratio 23.5 (12.0-20.0); CO2, Blood 31 mmol/L (21-32); Calcium, Blood 9.1 mg/dL (8.5-10.1); Chloride, Blood 103 mmol/L (98-108); Creatinine, Blood 0.34 mg/dL (0.40-1.00); Glomerular Filtration Rate 105 (60-); Glucose, Blood 101 mg/dL (70-99); Sodium, Blood 144 mmol/L (136-145)
--- NOTE | 2022-02-04 14:21 | NUR ---
Spoke with Primary RN Christophe and discussed case. Flexeril added to regimen and pain medication will be offered more frequent to assist with pain control. Pt resting in bed and is A&OX4. Pt reports 6/10 pain in her back. She reports muscle spasms in her back are contributing towards her pain. She reports the Flexeril is starting to kick in and feels their is some benefit. Pt reports living at home with her . Pt reports having 10 children, 5 children are her's and 5 children are her husbands. She reports half live local and the other half are scattered. Continued therapeutic listening. Suggested in between pain regimen trialing heat to assist with relaxing the muscles. Pt reports prior to her fall she was ambulatory and independent of her ADLs and now can not get out of bed due to the pain. Ended visit to allow Pt to rest. Pt agreeable for this RN to return tomorrow. Palliative care will F/U for supportive visits and symptom management.
--- NOTE | 2022-02-04 18:56 | NUR ---
SUMMARY- PT A/O X3-4. BEDREST, REFUSING ALL CARE. ONLY LAYS ON THE L SIDE NEEDS TO TOOL DESIGN DRAFTSPERSON THE SIDE RAIL FOR COMFORT. ADJUSTED MEDS ADDING FLEXORIL IN ADDIDTION TO PERCOCET 4 AND TORODOL Q6. PAIN HAS IMPROVED, PT STATES NOW A 5/10. PT IS MORE CALM AND TALKING, TAKING IN DINNER AND PLEASANT WITH THIS PM. THE MORNING SHE WAS VERY IRRITABLE. PT ONLY ALLOWED INCONT CHANGE ONCE AT 1500. SKIN INTACT. WILL REPORT TO CRUZ MTZ.
--- NOTE | 2022-02-05 04:03 | NUR ---
SHIFT SUMMARY PT IS DOING MUCH BETTER IS REGARDS TO PAIN THIS EVENING. SHE IS ABLE TO GET SLEEP AND ONLY WAKES UP OCCASIONALLY TO ASK TO BE REPOSITIONED. PER MD REQUEST PT IS MEDICATED EVERY 4 HRS WITH A PAIN RELIEVER TO HELP THE PAIN FROM GETTING OUT OF CONTROL. SPOKE WITH DAUGHTER AND UPDATED ABOUT CONDIITON. CALL LIGHT IN REACH.
--- NOTE | 2022-02-05 10:13 | NUR ---
Pt resting in bed with Primary RN Christophe at bedside offering pain medication. Assisted Christophe with repositioning Pt in bed. Pt reports 8/10 pain with movement. She reports the spasms start with movement. Pt reports at rest pain subsides to 3/10. She reports this is an improvement as prior to the regimen Pt was experiencing significant pain constantly, even at rest. Educated on considering heat to assist with relaxing muscles. If current regimen is no longer beneficial, Pt may benefit from baclofen if appropriate. Pt would also benefit from continued physical therapy. Palliative Care will remain available.
--- NOTE | 2022-02-05 18:42 | NUR ---
SUMMARY- PT A/O X4. PT HERE WITH INTRACTABLE BACK PAIN. PAIN MANAGED WITH PERCOCET 2, APPROX Q4-6 HRS, ROUTINE FLEXORIL TID AND TORADOL PRN Q6-8. PT STATES PAIN IS CONTROLLED AT A 3 UNLESS SHE MOVES THAN IS SPASMS INTO 03/29. PT INSPIRED TO GET UP AFTER SPEAKING WITH DR CARTER AND STATES "I'LL GET UP TO SHOW HER I CAN DO IT!!" SAT AT THE EDGE OF THE BED TODAY APPROX 4 TIMES FOR ABOUT A MINUTE AT A TIME THAN HAD TO LAY DOWN BECAUSE PAIN UNBEARABLE. FAMILY BROUGHT BACK BRACE IN. HAS INSTRUCTIONS FROM [facility] IN [place] TO WEAR BRACE FOR 3-4 MTHS AFTER SG 11/09 WHEN UPRIGHT 90 DEGREES AND STANDING. PT HAD BM X2 TODAY. INCONT B/B BECAUSE SHE IS UNABLE TO GET UP WITH THE PAIN AND HASN'T CALLED FOR BEDPAN. USES CALL LIGHT. PT'S LUNGS CLEAR, WEANED OFF O2 TODAY, SATS 94-99% ROOM AIR. WILL REPORT TO NOC SMITH
--- NOTE | 2022-02-06 06:29 | NUR ---
SHIFT SUMMARY PT COMPLAINS OF BACK PAIN AND IS MEDICATED PER EMAR. PT SLEPT OFF AND ON THROUGHOUT THE SHIFT. PT YELLING OUT IN HER SLEEP AND FORGETFUL TO WHY SHE IS HERE. PT REMEMBERS WHERE SHE IS WHEN SHE IS MORE AWAKE. CALL LIGHT IS WITHIN HER REACH. PT CONTINUES TO HAVE DIFFICULT TIME BEING MOVED. SHE IS MORE OPEN TO MOVEMENT WHEN IT IS ON HER TERMS. PT IS COOPERATIVE WITH CARE.
[2022-02-06 16:29] LABS: Influenza A, PCR NEGATIVE (NEGATIVE); Influenza B, PCR NEGATIVE (NEGATIVE); Resp Syncytial Virus, PCR NEGATIVE (NEGATIVE); SARS-Cov-2 (COVID-19) PCR, MMC NEGATIVE (NEGATIVE)
--- NOTE | 2022-02-06 18:05 | NUR ---
DISCHARGE SUMMARY PATIENT DISCHARGED TO [facility]. REPORT CALLED TO FACILITY RECEIVING RN. PATIENT TAKEN VIA WHEELCHAIR TRANSPORT. TRANSPORT PERSONEL GIVEN DISCHARGE PAPERWORK INCLUDING SCRIPT TO GIVE TO RECEIVING FACILITY. PATIENT REFUSED TO PUT ON BACK BRACE FOR RIDE OVER TO FACILITY. PATIENT AND ALL BELONGINGS TAKEN. PERIPHERAL IV LEFT IN IN ERROR. RECEIVING RN NOTIFED AND WILL TAKE IV OUT AT FACILITY.
[2022-02-06] MEDS ORDERED: Percocet 5-3251 EACH PO (19:11)
[2022-02-06] MEDS ORDERED: BACL10 PO (19:12)
[2022-02-06] MEDS ORDERED: Ativan1 MG PO (19:13)
[2022-02-06] MEDS ORDERED: MIRALAX17 GM PO (19:13)
== END 2022-02-06 17:44 | disposition home or self-care (01) | DRG 552 ==
LOC: ER 10:33 → MEDS 10:34 → ER 10:34 → MEDS 10:34 → ER 15:42 → MEDS 16:00
PROVIDERS: Emergency Medicine; Internal Medicine; Nurse Practitioner Acute Care; ADMIT Hospitalist
DX: M54.6 Pain in thoracic spine (principal); G89.11 Acute pain due to trauma; G25.81 Restless legs syndrome; I10 Essential (primary) hypertension; Z66 Do not resuscitate; K59.03 Drug induced constipation; T40.605A Adverse effect of unspecified narcotics, initial encounter; F41.9 Anxiety disorder, unspecified; G47.00 Insomnia, unspecified; F11.10 Opioid abuse, uncomplicated; G89.29 Other chronic pain; R09.02 Hypoxemia; E66.01 Morbid (severe) obesity due to excess calories; R26.2 Difficulty in walking, not elsewhere classified; E03.9 Hypothyroidism, unspecified; J44.9 Chronic obstructive pulmonary disease, unspecified; F17.210 Nicotine dependence, cigarettes, uncomplicated; M62.838 Other muscle spasm; Z20.822 Contact with and (suspected) exposure to COVID-19; Z90.710 Acquired absence of both cervix and uterus; Z68.35 Body mass index [BMI] 35.0-35.9, adult; Z98.890 Other specified postprocedural states
CPT/HCPCS: 0241U; 36415; 71045; 80053; 80069; 85025; 94762; 96372; 96374; 96375; 96376; 97110; 97162; 97530; 99285-25; A9270; G0378; J1650; J1885; J2060; J2405; J3010; J7030

== ENCOUNTER 2022-02-11 19:05 | Inpatient (IN) | payer OTHER ==
[~2022-02-11] VITALS: Ht 167.6 cm; Wt 84.6 kg
[~2022-02-11 19:05] MED LIST changes: +Ativan1 MG PO; +BACL10 PO; +EUTHYROX50 MCG PO; -LEVSOD50 PO; +MIRALAX17 GM PO; +Percocet 5-3251 EACH PO
[2022-02-11 19:40] LABS: BASOPHILS ABSOLUTE AUTO 0.11 K/mm3 (0.00-0.23); BASOPHILS PERCENT AUTO 1 % (0-2); EOSINOPHILS ABSOLUTE AUTO 0.36 K/mm3 (0.00-0.68); EOSINOPHILS PERCENT AUTO 2 % (0-6); Hematocrit 51.3 % (33.0-51.0); Hemoglobin 16.1 g/dL (11.5-16.0); IMMATURE GRAN ABSOLUTE AUTO 0.11 K/mm3 (0.00-0.10); IMMATURE GRAN PERCENT AUTO 1 % (0-1); LYMPHOCYTES ABSOLUTE AUTO 5.72 K/mm3 (0.84-5.20); LYMPHOCYTES PERCENT AUTO 31 % (21-46); MONOCYTES ABSOLUTE AUTO 1.01 K/mm3 (0.16-1.47); MONOCYTES PERCENT AUTO 6 % (4-13); Mean Corpuscular HGB 26.8 pg (26.0-34.0); Mean Corpuscular HGB Conc 31.4 g/dL (31.5-36.5); Mean Corpuscular Volume 86 fL (80-100); Mean Platelet Volume 10.6 fL (9.1-12.4); NEUTROPHILS ABSOLUTE AUTO 11.01 K/mm3 (1.96-9.15); NEUTROPHILS PERCENT AUTO 60 % (41-73); Platelet Count 566 K/mm3 (150-400); RDW Coefficient Variation 15.9 % (11.7-14.2); RDW Standard Deviation 48.9 fL (35.1-46.3); White Blood Cell Count 18.32 K/mm3 (4.00-11.30)
[2022-02-11 19:54] LABS: Source, Urine Foley catheter
[2022-02-11 20:01] LABS: Alanine Aminotransfer (ALT/SGP 22 U/L (12-78); Albumin, Blood 4.2 g/dL (3.4-5.0); Alk Phos 117 U/L (50-136); Anion Gap 13 mmol/L (6-16); Aspartate Aminotrans (AST/SGOT 17 U/L (12-37); Bilirubin, Total 0.5 mg/dL (0.1-1.0); Blood Urea Nitrogen 44 mg/dL (8-24); Bun/Creatinine Ratio 27.2 (12.0-20.0); CO2, Blood 30 mmol/L (21-32); Calcium, Blood 10.1 mg/dL (8.5-10.1); Chloride, Blood 93 mmol/L (98-108); Creatinine, Blood 1.62 mg/dL (0.40-1.00); Ethanol (Alcohol), Blood, Med <3 mg/dL; Globulin, Blood 4.3 g/dL (2.2-4.0); Glomerular Filtration Rate 32 (60-); Glucose, Blood 171 mg/dL (70-99); Potassium, Blood 3.8 mmol/L (3.5-5.5); Sodium, Blood 136 mmol/L (136-145); Total Protein, Blood 8.5 g/dL (6.4-8.2)
[2022-02-11 20:15] LABS: Bilirubin, Urine Neg (Neg); Blood, Urine Neg (Neg); Glucose Qualitative, Urine Neg (Neg); Ketones, Urine Neg (Neg); Leukocyte Esterase, Urine Neg (Neg); Nitrite, Urine Neg (Neg); Protein, Urine 1+ (Neg); Urobilinogen, Urine NORM (Normal); pH, Urine 6.5 (5.0-8.0)
[2022-02-11 20:19] LABS: Appearance, Urine Clear (Clear); Color, Urine Yellow (P-Yellow)
[2022-02-11 21:20] LABS: PCO2 Arterial 46.5 mmHg (35-45); PO2 Arterial 63.9 mmHg (80-100); pH Blood Arterial 7.46 (7.35-7.45)
[2022-02-11 21:27] LABS: Influenza A, PCR NEGATIVE (NEGATIVE); Influenza B, PCR NEGATIVE (NEGATIVE); Resp Syncytial Virus, PCR NEGATIVE (NEGATIVE); SARS-Cov-2 (COVID-19) PCR, MMC NEGATIVE (NEGATIVE)
[2022-02-11 21:41] LABS: U Amphetamine Screen Not Detected; U Barbituate Screen Not Detected; U Benzodiazapine Screen DETECTED; U Buprenorphine Screen Not Detected; U Cannabinoids Screen Not Detected; U Cocaine Screen Not Detected; U Methadone Screen Not Detected; U Methamphetamine Screen Not Detected; U Opiates Screen DETECTED; U Oxycodone Screen DETECTED; U Phencyclidine Screen Not Detected; U Propoxyphene Screen Not Detected
--- NOTE | 2022-02-12 01:33 | NUR ---
PT ARRIVED FROM ED INTUBATED ON PROPOFOL/RESTRAINT. PT RESTED OVERNIGHT. VENT MANAGED BY RT. THICK ET AND ORAL SECRETIONS. NO EDEMA NOTED. SYSTOLIC WNL. OG TO LIS. MONAHAN FOR ACCURATE UO. Q2 TURNS BONY PROMINENCES PROTECTED AND OFFLOADED. CTM OXYGENATION, COMFORT
[2022-02-12 03:11] LABS: PCO2 Arterial 33.3 mmHg (35-45); pH Blood Arterial 7.56 (7.35-7.45)
[2022-02-12 03:25] LABS: BASOPHILS ABSOLUTE AUTO 0.04 K/mm3 (0.00-0.23); BASOPHILS PERCENT AUTO 0 % (0-2); EOSINOPHILS ABSOLUTE AUTO 0.11 K/mm3 (0.00-0.68); EOSINOPHILS PERCENT AUTO 1 % (0-6); Hematocrit 44.4 % (33.0-51.0); Hemoglobin 14.3 g/dL (11.5-16.0); IMMATURE GRAN ABSOLUTE AUTO 0.06 K/mm3 (0.00-0.10); IMMATURE GRAN PERCENT AUTO 0 % (0-1); LYMPHOCYTES ABSOLUTE AUTO 2.62 K/mm3 (0.84-5.20); LYMPHOCYTES PERCENT AUTO 18 % (21-46); MONOCYTES ABSOLUTE AUTO 0.77 K/mm3 (0.16-1.47); MONOCYTES PERCENT AUTO 5 % (4-13); Mean Corpuscular HGB 27.2 pg (26.0-34.0); Mean Corpuscular HGB Conc 32.2 g/dL (31.5-36.5); Mean Corpuscular Volume 84 fL (80-100); Mean Platelet Volume 10.7 fL (9.1-12.4); NEUTROPHILS ABSOLUTE AUTO 11.06 K/mm3 (1.96-9.15); NEUTROPHILS PERCENT AUTO 75 % (41-73); Platelet Count 395 K/mm3 (150-400); RDW Coefficient Variation 15.6 % (11.7-14.2); RDW Standard Deviation 47.8 fL (35.1-46.3); Red Blood Cell Count 5.26 M/mm3 (3.80-5.20); White Blood Cell Count 14.66 K/mm3 (4.00-11.30)
[2022-02-12 03:44] LABS: Alanine Aminotransfer (ALT/SGP 19 U/L (12-78); Albumin, Blood 3.3 g/dL (3.4-5.0); Albumin/Globulin Ratio 0.9 (0.8-1.8); Alk Phos 99 U/L (50-136); Anion Gap 11 mmol/L (6-16); Aspartate Aminotrans (AST/SGOT 19 U/L (12-37); Bilirubin, Total 0.8 mg/dL (0.1-1.0); Blood Urea Nitrogen 45 mg/dL (8-24); Bun/Creatinine Ratio 29.6 (12.0-20.0); CO2, Blood 29 mmol/L (21-32); Calcium, Blood 8.9 mg/dL (8.5-10.1); Chloride, Blood 98 mmol/L (98-108); Creatinine, Blood 1.52 mg/dL (0.40-1.00); Globulin, Blood 3.6 g/dL (2.2-4.0); Glomerular Filtration Rate 35 (60-); Glucose, Blood 118 mg/dL (70-99); Magnesium, Blood 2.4 mg/dL (1.6-2.4); Potassium, Blood 3.5 mmol/L (3.5-5.5); Sodium, Blood 138 mmol/L (136-145); Total Protein, Blood 6.9 g/dL (6.4-8.2); Vancomycin, Random 43.1 ug/mL
--- NOTE | 2022-02-12 08:00 | NUR ---
ASSUMED CARE OF MERRITT AT 0700, PT VENTILATED AC/PC 16 PEEP 8 FIO2 30%. ETT 7.5 WITH 22CM @ THE GUMS. SUCTIONING RETURNS GRAVY COLORED SECRETIONS. PROPOFOL GTT @ 10MCG/KG. OGT TO LIS WITH BILE RETURN. PUPILS EQUAL, SLUGGISH REACTION TO LIGHT. PT NOT OPENING EYES OR FOLLOWING COMMANDS. SPONTANEOUS MOVEMENT OF LEGS NOTED. MONAHAN CATHETER TO GRAVITY DRAINAGE WITH CLEAR YELLOW RETURN. NO PERIPHERAL EDEMA NOTED, PULSES GOOD, SKIN WARM TO THE TOUCH. FAMILY CALLING TO CHECK ON HER.
--- NOTE | 2022-02-12 12:00 | NUR ---
IN TO SEE PATIENT, NO NEW ORDERS RECEIVED.
--- NOTE | 2022-02-12 12:30 | NUR ---
SEEING PATIENT, ORDERS RECEIVED. FLUID BOLUS GIVEN, PROPOFOL OFF FOR NOW.
--- NOTE | 2022-02-12 13:00 | NUR ---
PT OPENED HER EYES TO COMMAND, NODDED HEAD. REMAINS CALM. WILL KEEP PROPOFOL ON SB.
--- NOTE | 2022-02-12 14:30 | NUR ---
PT TURNED AND REPOSITIONED, IN DOING SO SHE IMMEDIATELY GRABBED FOR THE ETT. PT INSTRUCTED ON WHY SHE IS HERE AND WHAT THE TUBE IS FOR. RESTRAINTS REAPPLIED AND PROPOFOL RESTARTED @ 10MCG/KG
--- NOTE | 2022-02-12 18:09 | NUR ---
MERRITT IS DEFINITELY MORE RESPONSIVE THAN SHE WAS THIS MORNING. SHE IS ABLE TO ANSWER QUESTIONS BY NODDING HER HEAD OR SHAKING IT. SHE IS MOVING ALL EXTREMITIES WELL AND IF THE WRISTS ARE LEFT UNRESTRAINED SHE IMMEDIATELY GOES FOR THE ETT. VENT CONTINUES AC/PC 02/01 30% WITH GRAVY COLORED RETURN IN SUCTION TUBING. HER BROTHER AND HER NIECE HAVE BEEN IN TO VISIT TWICE TODAY. SHE IS CURRENTLY GETTING LR @ 200ML/HR. PROPOFOL @ 20MCG/KG. CONTINUES WITH PERIPHERAL IV SITES X 2. LEFT FOREARM AND RIGHT A/C. MONAHAN CONTINUES TO GRAVITY WITH CLEAR YELLOW RETURN.
[2022-02-13 03:23] LABS: Hematocrit 34.6 % (33.0-51.0); Hemoglobin 11.2 g/dL (11.5-16.0); Mean Corpuscular HGB 27.8 pg (26.0-34.0); Mean Corpuscular HGB Conc 32.4 g/dL (31.5-36.5); Mean Corpuscular Volume 86 fL (80-100); Mean Platelet Volume 10.9 fL (9.1-12.4); Platelet Count 304 K/mm3 (150-400); RDW Coefficient Variation 15.9 % (11.7-14.2); RDW Standard Deviation 49.9 fL (35.1-46.3); Red Blood Cell Count 4.03 M/mm3 (3.80-5.20)
[2022-02-13 03:41] LABS: Albumin, Blood 2.5 g/dL (3.4-5.0); Anion Gap 9 mmol/L (6-16); Blood Urea Nitrogen 25 mg/dL (8-24); Bun/Creatinine Ratio 33.8 (12.0-20.0); CO2, Blood 28 mmol/L (21-32); Calcium, Blood 7.9 mg/dL (8.5-10.1); Chloride, Blood 104 mmol/L (98-108); Creatinine, Blood 0.74 mg/dL (0.40-1.00); Glomerular Filtration Rate 83 (60-); Glucose, Blood 107 mg/dL (70-99); Phosphorus, Blood 2.4 mg/dL (2.5-4.9); Potassium, Blood 2.8 mmol/L (3.5-5.5); Sodium, Blood 141 mmol/L (136-145); Vancomycin, Random 12.2 ug/mL
--- NOTE | 2022-02-13 04:42 | NUR ---
PT ALERT TO PAIN, PERRLA, FIGHTING RESTRAINTS/OVERBREATHING VENT - SEDATION TITRATED TO COMFORT. SR TO ST W/TURNS OR AGITATION - NO EDEMA NOTED. LUNGS SOUNDS CLEAR UPPER & DIMINISHED LOWER. VENT MANAGED BY RT. HYPOACTIVE BT ALL QUADS. TANIYA FOR ACCURATE UO. 2XPIV. Q2 TURNS BONY PROMINENCES PROTECTED AND OFFLOADED.
--- NOTE | 2022-02-13 07:30 | NUR ---
ASSUMED CARE OF MERRITT, SHE IS ON THE VENTILATOR 01/01 RATE 16 30%. TOLERATING WITH GOOD VOLUMES AND SATS >96%. PROPOFOL DOWN TO 30MCG/KG. IV'S AT TKO. ABD SOFT, NON TENDER. MONAHAN TO GRAVITY DRAINAGE, CLEAR YELLOW RETURN. MAEW, PULLING AGAINST RESTRAINTS, NODDING TO QUESTIONS, FOLLOWING COMMANDS.
--- NOTE | 2022-02-13 08:30 | NUR ---
MULTIPLE ANTIBIOTICS ORDERED, VANCOMYCIN SITE INFILTRATED, IV RESTARTED X 2. ICE PACK PUT ON LEFT FOREARM. DAUGHTER, JANE IN TO VISIT.
--- NOTE | 2022-02-13 09:00 | NUR ---
IN TO SEE PATIENT. PLACED ON SPONTANEOUS WITH PS 18. PROPOFOL ON SB.
--- NOTE | 2022-02-13 10:00 | NUR ---
PT INCONTINENT OF LARGE LIQUID STOOL, CLEANED AND TURNED. PRESSURE SUPPORT DOWN TO 12.
--- NOTE | 2022-02-13 11:26 | NUR ---
BROUGHT PRESSURE SUPPORT DOWN TO 8. PT FIGHTING VENTILATOR. FIDGETING AND FRUSTRATED. SHE IS ACKNOWLEDGING STAFF. DAUGHTER JANE REMAINS AT BEDSIDE. BROTHER NICOLA IS HERE WELL. ENCOURAGES THEM TO ENCOURAGE THE PATIENT TO TAKE DEEP BREATHS.
--- NOTE | 2022-02-13 12:29 | NUR ---
MERRITT RETURNED TO PS 12 SHE WAS HAVING LOW TIDAL VOLUMES. SHE WAS TURNED AND CLEANED AGAIN. SHE CONTINUES TO SHAKE HER HEAD "NO". TRYING TO ENCOURAGE HER WITH WORDS. HEART RATE INCREASING, BLOOD PRESSURE INCREASING. DR.DIAZ MARSH.
--- NOTE | 2022-02-13 13:22 | NUR ---
PT RESTLESS. ASKED IF SHE WANTED HER VISITORS TO LEAVE, SHE NODDED HER HEAD. ASKED IF SHE WANTED THEM TO COME BACK AND SHE SHOOK HER HEAD NO. PT ENCOURAGED TO REST AND FOCUS ON HER BREATHING TO GET THE ETT OUT. RESPIRATORY CARE CALLED TO COME AND TITRATE NOW THAT SHE IS CALMED DOWN AND THE FAMILY IS GONE. DAUGHTER (JANE) DID NOT WANT TO LEAVE, SHE WAITED UNTIL ASKED AGAIN TO LEAVE. PT INCONTINENT OF STOOL AGAIN.
--- NOTE | 2022-02-13 13:38 | NUR ---
PT DOING WELL ON HER OWN, SARI WAS ABLE TO MOVE PS TO 10. WILL REEVALUATE AGAIN SOON.
--- NOTE | 2022-02-13 13:57 | NUR ---
JUST SAID HE WOULD LIKE TO HOLD OFF EXTUBATION UNTIL TOMORROW. HE IS ORDERING SOME PAIN MEDICATION AND INCREASED HER PS 12. PT INFORMED. NODDED HEAD.
--- NOTE | 2022-02-13 14:22 | NUR ---
Reviewed EMR and received update on events of the day from pt's RN. No extubation planned today, hopeful for tomorrow. Will make f/u visit in am.
--- NOTE | 2022-02-13 18:59 | NUR ---
WENT IN TO DO 1800 TURNS, REPOSITION, CIRC CHECKS, PATIENT INCONTINENT OF ANOTHER STOOL. AFTER CLEANING HER UP AND REPOSITIONING, FOUND TO HAVE THE RIGHT AC IV SITE PULLED NEARLY OUT, RIGHT FOREARM SITE WAS SWOLLEN AND RED. ATTEMPT TO GET ANOTHER SITE FAILED.
--- NOTE | 2022-02-13 20:19 | NUR ---
PT SHIFT START PT NODED FOR PAIN, OVERBREATHING VENT W/TIDAL VOLUME 1000's. MD NOITIFIED PRN PAIN MEDS CHANGED TO Q2 AND SEDATION TITRATED TO COMFORT. CTM TO MONITOR COMFORT - REPOSITIONED, CONSULE, DISTRACTED W/MUSIC & VERBAL CUES. INTERVENTION EFFECTIVE
--- NOTE | 2022-02-14 01:27 | NUR ---
FOLLOWS COMMAND INTERMITTENLY BUT IMPULSIVE. SEDATION TO COMFORT AND PRN FOR PAIN. NO EDEMA NOTED. VENT MANAGED BY RT. OG TO LIS - GREEN BILE SECRETIONS COLLECTING. MONAHAN FOR ACCURATE UO. Q2 TURNS BONY PROMINENCES OFFLOADED AND PROTECTED. CTM TO MONITOR OXYGENATION, COMFORT
[2022-02-14 03:14] LABS: BASOPHILS ABSOLUTE AUTO 0.05 K/mm3 (0.00-0.23); BASOPHILS PERCENT AUTO 1 % (0-2); EOSINOPHILS ABSOLUTE AUTO 0.42 K/mm3 (0.00-0.68); EOSINOPHILS PERCENT AUTO 4 % (0-6); Hematocrit 33.4 % (33.0-51.0); Hemoglobin 10.5 g/dL (11.5-16.0); IMMATURE GRAN ABSOLUTE AUTO 0.07 K/mm3 (0.00-0.10); IMMATURE GRAN PERCENT AUTO 1 % (0-1); LYMPHOCYTES ABSOLUTE AUTO 2.17 K/mm3 (0.84-5.20); LYMPHOCYTES PERCENT AUTO 23 % (21-46); MONOCYTES ABSOLUTE AUTO 0.66 K/mm3 (0.16-1.47); MONOCYTES PERCENT AUTO 7 % (4-13); Mean Corpuscular HGB 27.1 pg (26.0-34.0); Mean Corpuscular HGB Conc 31.4 g/dL (31.5-36.5); Mean Corpuscular Volume 86 fL (80-100); Mean Platelet Volume 11.1 fL (9.1-12.4); NEUTROPHILS ABSOLUTE AUTO 6.18 K/mm3 (1.96-9.15); NEUTROPHILS PERCENT AUTO 65 % (41-73); NRBC ABSOLUTE 0.02 K/mm3 (0.00-0.02); NRBC Auto 0.2 /100 WBC (0.0-0.2); Platelet Count 298 K/mm3 (150-400); RDW Coefficient Variation 15.6 % (11.7-14.2); RDW Standard Deviation 49.4 fL (35.1-46.3); Red Blood Cell Count 3.88 M/mm3 (3.80-5.20); White Blood Cell Count 9.55 K/mm3 (4.00-11.30)
[2022-02-14 03:38] LABS: Bun/Creatinine Ratio 23.9 (12.0-20.0); Calcium, Blood 8.4 mg/dL (8.5-10.1); Creatinine, Blood 0.5 mg/dL (0.40-1.00); Potassium, Blood 3.1 mmol/L (3.5-5.5)
--- NOTE | 2022-02-14 07:25 | NUR ---
Received report from [facility]. Patient is intubated and sedated on vent. He has 7.5Et and is 24 cm at teeth and vent settings of AC/VC 16/30/5 and sats 97%. She awakens to verbal stimuli and d opens eyes but followed simple commands. MAEW but slow. She has PowerGlide to RULA and is infusing Propofol at 20 mcg/kg/min and NS TKO and 18ga IV in LW falushed and SL'd. She has OG to LIS, no current output. She has 16Fr temp reagan draining to gravity yellow urine and has temp of 99.4. Skin intact
--- NOTE | 2022-02-14 09:06 | NUR ---
DR Hanna here to see patient, RT placed patient on Spon. 85 and sats 95%. Daughter at bedside. Plan for possible extubations. VSS
--- NOTE | 2022-02-14 10:37 | NUR ---
Patient extubates at 0945 and placed on 4L O2 via NC and then reduced to 3L by RT just recently. She has been yelling out she does not want to live any longer and when asked if in pain she denies and states "i have not slept and cant fall asleep". Sats >95% on current settings.
--- NOTE | 2022-02-14 11:00 | NUR ---
Case conference with RN, , RT. Pt has been extubated this am and is awake and oriented. She is able to state her wishes. When asked, she is very clear and consitently states she does not want to be reintubated if needed for survival and she does not want CPR. verified this also at bedside. New POLST completed for pt and copies sent to medical records. also shared with visiting son and dil, pt's expressed wishes. Pt states her is her surrogate decision maker if she cannot communicate with us. Pt reports to me that she is hurting and she is moaning, distressed. Reported to RN. Pt states she wants to go home with and family caring for her there. DIL reports that is unable to care for her due to his significant health issues and that family is not available. This was passed on to CM.
--- NOTE | 2022-02-14 11:30 | NUR ---
Patient resting off and on and cant really get comfortable, denies any pain. Patient has been tachy since extubation. She has been self positioning trying for comfort.Minaya patent with light eliana colored.
--- NOTE | 2022-02-14 13:30 | NUR ---
Patient is now c/o of pain and medication per MAR. Brother at bedside. Dr Hanna has been in room and clarified that she wants to be a DNR. She stated she could no breath and placed CPAP for short period before she took off and continues ot be on 3L O2 via NC.
--- NOTE | 2022-02-14 15:30 | NUR ---
Patient having OT and sat up to side of bed for short period. Placed K pad down for her back and she is very stiff. Still tachy 110-125 and hypertensive, will medicate per mar and call Dr Turner for medication. She is MAEW. She has had many visitors today. Marimar patent. NS TKO continues.
--- NOTE | 2022-02-14 17:59 | NUR ---
Patients family left and she is trying to rest. She remains om 3L O2 via NC and sats 99%. She has 18ga PowerGlide to RULA and is infusing NS TKO and just gave 5 mg Metoprolol and HR 93 and systolic 120's . She positions self for comfort or calls out for assistance. Minaya had 1200 ml out of light eliana colored urine and IV 543 ml in. only 1 liquid stool today. She ia able to communicate her needs.
--- NOTE | 2022-02-14 20:08 | NUR ---
ASSUMED CARE OF PT AT 1915. REPORT RECEIVED. PT PRESENTS IN BED. ALERT AND ORIENTED. ATTEMPTED TO DRAW LAB FROM POWER GLIDE FROM RIGHT UPPER ARM. WAS UNSUCESSFUL. DRESSING REMOVED AND LINE REPOSITIONED TO ATTEMPT TO ASPIRATE BLOOD. AGAIN UNSUCESSFUL. LINE FLUSHES EASILY. REDRESSED POWER GLIDE PER PROTOCOL AND STERILE FASHION. PT COOPERATIVE THROUGH THIS. DID REPOSITION PT TO HER LEFT SIDE. PT MAKES FINE ADJUSTMENTS IN POSITION FOR HER COMFORT. WILL REVIEW CHART AND PLAN OF CARE FOR THIS PT.
[2022-02-14 20:39] LABS: Vancomycin, Trough 19.4 ug/mL (5.0-10.0)
--- NOTE | 2022-02-14 21:33 | NUR ---
PT HAS BEEN MEDICATED TWICE WITH 25 MCG'S FENTANYL, AND 5 MG OXYCONDONE FOR BACK PAIN WHICH SHE RATES 9/10. PT TEARFUL, AND STATES SHE IS SCARED TO MOVE. PT HAVE SOME RELIEF FROM FENTANYL AND PENDING OXYCODONE RELIEF.
--- NOTE | 2022-02-15 00:30 | NUR ---
CALL MADE TO DR RAYMOND CONCERNING PT'S CONTINUED PAIN. ORDER RECEIVED FOR ONE TIME DOSE BACLOFEN. PT HAS HAD GOOD RESULTS SO FAR WITH THIS.
--- NOTE | 2022-02-15 03:04 | NUR ---
PT AWAKENS YELLING OUT IN PAIN. STATES THAT HER PAIN LEVEL IS 8/10. "CAN I HAVE MORE NOW?" SHE QUESTIONS ABOUT PAIN MEDICATION. DID MEDICATE PT WITH 2 OF HER OXYCODONES. PENDING RESULTS.
[2022-02-15 04:14] LABS: BASOPHILS ABSOLUTE AUTO 0.07 K/mm3 (0.00-0.23); BASOPHILS PERCENT AUTO 1 % (0-2); EOSINOPHILS ABSOLUTE AUTO 0.42 K/mm3 (0.00-0.68); EOSINOPHILS PERCENT AUTO 4 % (0-6); Hematocrit 37.8 % (33.0-51.0); Hemoglobin 11.9 g/dL (11.5-16.0); IMMATURE GRAN ABSOLUTE AUTO 0.14 K/mm3 (0.00-0.10); IMMATURE GRAN PERCENT AUTO 1 % (0-1); LYMPHOCYTES ABSOLUTE AUTO 2.61 K/mm3 (0.84-5.20); LYMPHOCYTES PERCENT AUTO 23 % (21-46); MONOCYTES ABSOLUTE AUTO 0.74 K/mm3 (0.16-1.47); MONOCYTES PERCENT AUTO 7 % (4-13); Mean Corpuscular HGB 27.4 pg (26.0-34.0); Mean Corpuscular HGB Conc 31.5 g/dL (31.5-36.5); Mean Corpuscular Volume 87 fL (80-100); Mean Platelet Volume 10.7 fL (9.1-12.4); NEUTROPHILS ABSOLUTE AUTO 7.35 K/mm3 (1.96-9.15); NEUTROPHILS PERCENT AUTO 65 % (41-73); Platelet Count 341 K/mm3 (150-400); RDW Coefficient Variation 14.9 % (11.7-14.2); RDW Standard Deviation 47.9 fL (35.1-46.3); Red Blood Cell Count 4.34 M/mm3 (3.80-5.20); White Blood Cell Count 11.33 K/mm3 (4.00-11.30)
[2022-02-15 04:35] LABS: Albumin, Blood 2.7 g/dL (3.4-5.0); Anion Gap 10 mmol/L (6-16); Blood Urea Nitrogen 8 mg/dL (8-24); Bun/Creatinine Ratio 16.3 (12.0-20.0); CO2, Blood 25 mmol/L (21-32); Chloride, Blood 104 mmol/L (98-108); Creatinine, Blood 0.49 mg/dL (0.40-1.00); Glomerular Filtration Rate 96 (60-); Glucose, Blood 107 mg/dL (70-99); Phosphorus, Blood 3.7 mg/dL (2.5-4.9); Potassium, Blood 3.7 mmol/L (3.5-5.5); Sodium, Blood 139 mmol/L (136-145)
--- NOTE | 2022-02-15 04:59 | NUR ---
NO CRIES OF PAIN AT THIS TIME. DID ADMINISTER 2 PERCOCETS.
--- NOTE | 2022-02-15 09:02 | NUR ---
AM NOTE.... ASSUMED CARE OF PT AT 0700 THE PT IS A&Ox4. THE PT IS ON 2L NC WITH O2 SATS >96% L/S CLEAR T/O DIM IN THE BASES, THE PT WAS CHANGED TO RA WITH O2 SATS >90%. THE PT IS IN SINUS TACH IN THE LOW 100'S BP IS HYPERTENSIVE WITH SBPs IN THE 150'S-170'S. NO EDEMA IS NOTED ON ASSESSMENT. BT PRESENT AND HYPOACTIVE, ABD IS SOFT AND NONTENDER TO PALPATION. THE PT HAD AN INCONT EPISODE OF A SMALL BM. MONAHAN CARE WAS DONE AND A BEDBATH WAS GIVEN WITH LINEN CHANGE. THE PT IS C/O OF 8/10 BACK PAIN AND MOANING OUT AT TIMES, THE PT IS ABLE TO MOVE BOTH ARMS ABOVE HER HEAD WITHOUT NOTED PAIN, SHE IS ALSO ABLE TO LIFT HER HEAD AND SHIFT HER SHOULDERS WITHOUT ANY NOTED PAIN RESPONSE BY THIS RN. THE PT'S MONAHAN IS PATENT AND DRIANING TO GRAVITY. WILL CONTINUE TO MONITOR.
--- NOTE | 2022-02-15 15:42 | NUR ---
PATIENT CAME UP TO MEDICAL FLOOR FROM ICU AROUND 1500. SHE IS HERE FOR RESP FAILURE. SHE IS ON 2 LITER OF 02. SHE CAN TOLERATE RA LONG SHE STAYS AWAKE. PATIENT HAS POWER GLIDE RIGHT UPPER ARM- IT DOES NOT DRAW. MONAHAN CATHETER IS IN PLACE DUE TO MOBILITY ISSUES. SHE HAD BACK SURGERY A TIME AGO AND RECENTLY FELL SUSTAINING A COMPRESSION FRACTURE TO T 12. SHE HAS PAIN WITH CRAMPING ANS SPASM. NARCO, AND BACLOFEN ARE PRN FOR THOSE ISSUES. PATIENT IS ON A REGULAR DIET, SWALLOWS PILLS WHOLE. UPON COMING TO FLOOR, LUNG SOUNDS ARE CLEAR, HEART RATE REGULAR, PAIN IS TREATED WITH A PREVIOUSLY GIVEN NARCO, K-PAD IN PLACE AND SCUDS ON LE. DROPLET PRECAUTIONS FOR MRSA VANCOMYCIN IV MEDICATION TO TREAT. FAMILY IS WITH PATIENT AT THIS TIME, SPEAKING WITH FILM WRITER. PATIENT WILL HAVE FAINA FILM WRITER NOW THAT SHE IS ON THE FLOOR, BUT ROMÁN IS IN WITH FAMILY FOLLOWING UP AT THIS TIME.
--- NOTE | 2022-02-15 18:24 | NUR ---
PATIENT HAS BEEN HAVING MUSCLE SPASMS TOWARD THE END OF THE SHIFT. SHE WAS GIVEN ONE PERCOCET AT 173- (DOSE IS ONE - TWO, BUT ICU STATED ONE USUALLY DOES THE TRICK). ONE WAS NOT EFFECTIVE. SHE IS UNABLE TO RECEIVE BACLOFEN UNTIL 2029. DR. CARTER WAS CALLED AND STATED THAT THIS PATIENT WAS VERY DEEP INTO PAIN MEDS AND MUSCLE RELAXERS UPON ADMISSION SO SHE DID NOT FEEL JUSTIFIED IN ADDING MORE. SHE DID RECOMMEND THE SECOND PILL BE DELIVERED. THIS SINGLE END SEWER GAVE THE SECOND PILL AROUND 1829. THE PATIENT STATES THAT "THIS WON'T WORK, BECAUSE PAIN PILLS DO NOT WORK ON ME" AND SHE WOULD RATHER HAVE A MUSCLE RELAX. WE TALKED ABOUT PAIN, AND RESPONSE TO PAIN, AND HOW YOU BODY LEARNS YOUR PAIN RESPONSE. SHE STATES THAT HER SEVERE PAIN IS BECAUSE OF THE PHYSICAL THERAPY SHE HAS TO DO. SHE WAS EDUCATED ON HOW PAIN WILL DECREASE WITH CONTINUED PHYSICAL THERAPY. SHE IS NOW RESTING IN BED, QUIETLY STILL WIMPERING OCCASIONALLY.
--- NOTE | 2022-02-16 06:35 | NUR ---
Pt with hx of back surgwery in Sep 2021 & fall at home with t12 compression fx was ICU transfer yesterday. She was having acute spasms & back pain & baclofen 10 mg x 2 & percocet 5/325 two x 2 was helpful to control. Very poor appetite refused dinner, took ensure with setup & cues. Asked for bedpaiun sm liquid dark green bm. Minaya cath was placed in ER for immobility due to symptomatic t 12 fx in PT with recent spinal fusion. Poor memory, support offered. On 2 l nc oxygen .
[2022-02-16 08:38] LABS: BASOPHILS ABSOLUTE AUTO 0.07 K/mm3 (0.00-0.23); BASOPHILS PERCENT AUTO 1 % (0-2); EOSINOPHILS PERCENT AUTO 5 % (0-6); Hematocrit 38.7 % (33.0-51.0); Hemoglobin 12.1 g/dL (11.5-16.0); IMMATURE GRAN PERCENT AUTO 1 % (0-1); LYMPHOCYTES ABSOLUTE AUTO 1.78 K/mm3 (0.84-5.20); LYMPHOCYTES PERCENT AUTO 19 % (21-46); MONOCYTES ABSOLUTE AUTO 0.65 K/mm3 (0.16-1.47); MONOCYTES PERCENT AUTO 7 % (4-13); Mean Corpuscular HGB 27.2 pg (26.0-34.0); Mean Corpuscular HGB Conc 31.3 g/dL (31.5-36.5); Mean Corpuscular Volume 87 fL (80-100); Mean Platelet Volume 10.3 fL (9.1-12.4); NEUTROPHILS ABSOLUTE AUTO 6.23 K/mm3 (1.96-9.15); NEUTROPHILS PERCENT AUTO 67 % (41-73); Platelet Count 357 K/mm3 (150-400); RDW Coefficient Variation 14.6 % (11.7-14.2); RDW Standard Deviation 46.9 fL (35.1-46.3); Red Blood Cell Count 4.45 M/mm3 (3.80-5.20); White Blood Cell Count 9.33 K/mm3 (4.00-11.30)
[2022-02-16 08:50] LABS: Bun/Creatinine Ratio 11.2 (12.0-20.0); Creatinine, Blood 0.54 mg/dL (0.40-1.00); Potassium, Blood 4.2 mmol/L (3.5-5.5)
[2022-02-16 09:20] LABS: Vancomycin, Trough 20.2 ug/mL (5.0-10.0)
--- NOTE | 2022-02-16 17:25 | NUR ---
SHIFT SUMMARY PT ALERT AND ORIENTED, FOLLOWS COMMANDS. PT STILL IN PAIN THROUGHOUT THE DAY, BUT STATES PAIN IS BETTER TODAY. PT WORKED WITH PT/OT, WITH MINIMAL PROGRESS. PT TOLERATING DIET. PT TRANSITIONED TO PO ABX. WILL CONTINUE TO MONITOR.
--- NOTE | 2022-02-16 17:28 | NUR ---
Gave pt and her daughter an Advance directive today and answered questions regarding notary vs witness signature, and recommended they read the booklet in its entirety prior to filling out the decisions. They were very appreciative. Palliative care will remain available.
--- NOTE | 2022-02-17 05:48 | NUR ---
SHIFT SUMMARY NOC: PT HAS BEEN UNCOMFORTABLE IN BED WITH BACK AND BILAT THIGH PAIN. PRN MEDS GIVEN WITH MINIMAL RESPONSE. MD CALLED, NEW ORDER FOR LIDOCAINE PATCH, PATCH APPLIED. PT REPOSITIONED FREQUENTLY AND WARM BLANKETS APPLIED. PT WAS INTERMITTENTLY CONFUSED JUST KNOWING NAME AND BIRTHDAY BUT WAS AWARE OF CONFUSION. NO ACUTE EVENTS.
--- NOTE | 2022-02-17 17:38 | NUR ---
SHIFT SUMMARY PT ALERT AND ORIENTED, FOLLOWS COMMANDS. PT STILL HAVING SPASMS AND PAIN TO BACK AND THIGHS. PRN MEDICATIONS ADMINISTERED THROUGHOUT DAY. PT UP OOB WITH PT/OT TO CHAIR. PT TOLERATING DIET. PT ON RA TODAY WITH SPO2 >92%. WILL CONTINUE TO MONITOR.
--- NOTE | 2022-02-18 05:41 | NUR ---
SHIFT SUMMARY NOC: PT STATES THE MAJORITY OF HER DISCOMFORT IS MUSCLE SPASMS. MD OK'D ONE TIME FLERIL TABLET. PT STATES THE BACLOFEN WORKS BETTER AND TO CONTINUE THAT MEDICATION. PT UNCOMFORTABLE IN BED, DIDN'T SLEEP MUCH. NO ACUTE EVENTS OVERNIGHT.
[2022-02-18] MEDS ORDERED: BENAZEPRIL HCL20 M4 PO (06:02)
[2022-02-18] MEDS ORDERED: CARBIDOPA-LEVO1 EA15 PO (06:05)
[2022-02-18] MEDS ORDERED: HYDROCODONE-AC1 EAC7 PO (06:07)
--- NOTE | 2022-02-18 19:25 | NUR ---
MERRITT'S POWERGLIDE CAPS WERE CHANGED, FLUSHES WELL. CONTINUED TO ALTERNATE PERCOCET AND BACLOFEN PRN PAIN FROM MUSCLE SPASMS. BACK PAIN S/P T12 FRACTURE, SURGERY IN OCTOBER 2021. PT WITH MONAHAN WITH CLEAR YELLOW OUTPUT DRAINING TO GRAVITY. APPETITE IMPROVED. FAMILY AT BEDSIDE MOST OF THE DAY. PT IS RECOMMENDING PT THERAPY AT REHAB FACILITY, FAMILY STATES THEY WANT DISCHARGE HOME WITH HOME HEALTH. PT WORKED WITH PT ONCE TODAY, BUT DID NOT GET OUT OF BED. MERRITT WAS ENCOURAGED BY WORKING WITH A PT WHO SHE FEELS LISTENS TO HER.
--- NOTE | 2022-02-19 05:36 | NUR ---
SHIFT SUMMARY NOC: PT SLEPT MOST OF NIGHT. PT HAD LARGE BM ON BEDPAN. GIVEN PRN PAIN MEDICATION AND BACLOFEN. NO ACUTE OVERNIGHT EVENTS.
--- NOTE | 2022-02-19 09:32 | NUR ---
DR. JAQUEZ AT BEDSIDE - RECOMMENDING PT HAVE FURTHER REHAB AT [facility]. PT STATES SHE PREFERS DISCHARGE HOME WITH HOME HEALTH. PT REPORTS FEAR OF FALLING THAT MAKES HER HESISTANT TO PARTICIPATE IN THERAPY. DR. JAQUEZ, DAUGHTER SULTANA, AND PT HAVE LENGTHY CONVERSATION ABOUT MERRITT NEEDING TO ATTEMPT THERAPY, NEEDING TO GET OUT BED, NEEDING TO PUSH HERSELF. DR. JAQUEZ REVIEWS APPROPRIATE USE OF PAIN MEDICATION WITH GLADIS WEINBERG AND THAT THE PAIN WILL NOT BE COMPLETELY NUMB, BUT WILL BECOME TOLERABLE WITH MOVEMENT. MERRITT STATES SHE WILL ATTEMPT TO MOVE MORE AT HOME. DR. JAQUEZ WITH ORDERS TO REMOVE MONAHAN, RECOMMENDS A PT SESSION TODAY.
--- NOTE | 2022-02-19 09:35 | NUR ---
RN SPOKE TO PT ZAINA, REQUESTED PT SESSION TODAY PRIOR TO PT'S DISCHARGE.
--- NOTE | 2022-02-19 10:57 | NUR ---
PT WORKED WITH PHYSICAL THERAPIST ZAINA FOR A LENGTHY PT SESSION. PT YELLING OUT, STATING SHE IS IN PAIN DURING PT SESSION. FAMILY NOW AT BEDSIDE. SEE PT REPORT FOR THERAPY RECOMMENDATIONS.
--- NOTE | 2022-02-19 17:07 | NUR ---
PT EXPERIENCED A BIG VICTORY WHEN SHE WORKED WITH TWO STAFF TO AMBULATE FROM BED TO COMMODE, AND THEN TO CHAIR FOR DINNER. MAX ASSIST. PT MOANED THROUGH OUT MOVEMENT, BUT STATED SHE WAS PROUD OF HERSELF. HIGH PRAISE AND ENCOURAGEMENT FROM RN TO CONTINUE PRACTICING BABY STEPS AND PARTICIPATING IN THERAPY. PT WORE BACK BRACE, GAIT BELT, USED FWW WITH MAX ASSIST FROM TWO STAFF.
--- NOTE | 2022-02-19 19:35 | NUR ---
SHIFT SUMMARY Sarah TOLERATED SITTING IN THE CHAIR FOR 30 MINUTES. TANIYA WAS DC'D, PT HAS VOIDED ONCE IN THE COMMODE AND ONE UNMEASURED VOID IN ATTENDS. 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 REFUSING MIRALAX. VERY PAINFUL AFTER AMBULATING TODAY. REQUIRES ENCOURAGEMENT TO WORK THROUGH FEAR OF FALLING, TO PARTICIPATE IN THERAPY. NEEDS MOTIVATION TO PARTICIPATE SO THAT SHE CAN MET HER GOAL OF DISCHARGING HOME TO LIVE WITH DAUGHTER SULTANA WITH HOME HEALTH. CALL LIGHT WITHIN REACH.
--- NOTE | 2022-02-20 04:57 | NUR ---
SHIFT SUMMARY A/OX4, 2P MAX ASSIST WITH FWW AND GB. C/O LOWER BACK PAIN, MEDICATED PER EMAR. VSS, NO ACUTE CHANGES AT THIS TIME. BED IN LOWEST POSITION WITH CALL LIGHT IN REACH. WILL CONTINUE TO MONITOR AND REPORT TO ONCOMING RN.
--- NOTE | 2022-02-20 14:06 | NUR ---
SHIFT SUMMARY PT RESTING QUIELTY AT START OF SHIFT. WOKE EASILY FOR CARE. PT DECLINING TO EAT MUCH FOR BREAKFAST; DID DRINK ALL OF ENSURES WITH MEALS AND SOME BITES. MEDICATED FOR C/O NAUSEA THIS AM. PT REPORTED POSSIBLY FROM PO ABX. PT MEDICATED FOR C/O PAIN THIS AFTERNOON. PER SHIFT REPORT AND DR CARTER, PT WAITING FOR HOSPITAL BED TO BE DELIVERED AT HOME BEFORE D/C. VISITORS TO THIS AM AND AGAIN THIS AFTERNOON. REQUESTED BED SÁNCHEZ FOR EX LRG BM. PT REPORTED THAT IT CAME ON TOO FAST TO GET UP TO BSC. PT IS A&O AND ABLE TO MAKE NEEDS KNOWN. DENIED FURTHER NEEDS AT THIS TIME.
--- NOTE | 2022-02-20 23:31 | NUR ---
PHYSICIAN COMMUNICATION CONTACTED DR PLUMMER TO NOTIFY HIM THAT THE PATIENT WAS EXPERIENCING 8/10 PAIN AND THAT THE CURRENT PAIN MEDICATIONS AVAILABLE WERE NOT EFFECTIVE. DR PLUMMER ORDERED 20 MG TORADOL IV X1.
--- NOTE | 2022-02-21 06:02 | NUR ---
SHIFT SUMMARY PATIENT ALERT AND ORIENTED X3. MEDICATED MULTIPLE TIMES FOR PAIN. WOKE UP HALLUCINATING THIS MORNING. NO OTHER ISSUES NOTED. CALL LIGHT WITHIN REACH. REPORT GIVEN TO ONCOMING RN.
[2022-02-21] MEDS ORDERED: BACL10 PO (11:43)
[2022-02-21] MEDS ORDERED: LIDO700A20 TOP (11:44)
[2022-02-21] MEDS ORDERED: Percocet 5-3251 EACH PO (11:44)
[2022-02-21] MEDS ORDERED: OMEP20ER PO (11:45)
[2022-02-21] MEDS ORDERED: MELO7.5 PO (11:45)
--- NOTE | 2022-02-21 13:56 | NUR ---
SHIFT SUMMARY PT RESTING QUIETLY AT START OF SHIFT. WOKE EASILY FOR CARE. AWAKE FOR BREAKFAST, REPORTED DAUGHTER WORKING ON GETTING HOSPITAL BED FOR D/C. DR CARTER IN TO SEE PT AND DISCUSS D/C PLAN. ABX COMPLETE AFTER AM DOSE. VISITORS TO THIS AM. D/C ORDERS PLACED. PT JUST REPORTED DAUGHTER HAD PICKED UP BED AND WILL BE COMING IN TO GET HER. DAUGHTER TO BRING IN CLOTHES TO GO HOME IN WELL. MEDICATED FOR C/O PAIN TO LLQ AND L SIDE. DENIED FURTHER NEEDS. CALL LT IN REACH.
--- NOTE | 2022-02-21 16:30 | NUR ---
1520 AMBULANCE HERE TO P/U PT AND TAKE TO [facility]; SELF PAY TRANSPORT.
== END 2022-02-21 15:27 | disposition home health service (06) | DRG 208 ==
LOC: ER 19:05 → ICUE 21:56 → ICUW 22:19 → ICUE 22:19 → MEDS 02-15 14:50
PROVIDERS: Emergency Medicine; Internal Medicine; Internal Medicine Critical Care Medicine; Nurse Practitioner Acute Care; Pharmacist; ADMIT Internal Medicine
PROC: 0BH17EZ Insertion of Endotracheal Airway into Trachea, Via Natural or Artificial Opening (ICD-10-PCS; 2022-02-11)
PROC: 0D9670Z Drainage of Stomach with Drainage Device, Via Natural or Artificial Opening (ICD-10-PCS; 2022-02-11)
PROC: 5A1945Z Respiratory Ventilation, 24-96 Consecutive Hours (ICD-10-PCS; principal; 2022-02-12)
DX: J15.212 Pneumonia due to Methicillin resistant Staphylococcus aureus (principal); G92.8 Other toxic encephalopathy; J96.01 Acute respiratory failure with hypoxia; N17.9 Acute kidney failure, unspecified; Z20.822 Contact with and (suspected) exposure to COVID-19; J69.0 Pneumonitis due to inhalation of food and vomit; Z66 Do not resuscitate; I10 Essential (primary) hypertension; D72.829 Elevated white blood cell count, unspecified; G25.81 Restless legs syndrome; F41.9 Anxiety disorder, unspecified; G47.00 Insomnia, unspecified; E03.9 Hypothyroidism, unspecified; J44.9 Chronic obstructive pulmonary disease, unspecified; F11.10 Opioid abuse, uncomplicated; G89.29 Other chronic pain; F13.10 Sedative, hypnotic or anxiolytic abuse, uncomplicated; M54.6 Pain in thoracic spine; K76.0 Fatty (change of) liver, not elsewhere classified; E87.6 Hypokalemia; E66.01 Morbid (severe) obesity due to excess calories; E86.0 Dehydration; E83.39 Other disorders of phosphorus metabolism; Z68.35 Body mass index [BMI] 35.0-35.9, adult; R41.82 Altered mental status, unspecified; Z87.81 Personal history of (healed) traumatic fracture; Z79.51 Long term (current) use of inhaled steroids; Z79.899 Other long term (current) drug therapy; Z98.1 Arthrodesis status; Z90.710 Acquired absence of both cervix and uterus; Z98.890 Other specified postprocedural states; F17.210 Nicotine dependence, cigarettes, uncomplicated
CPT/HCPCS: 0241U; 31500; 36415; 36600; 51702; 70450; 71045; 72128; 72131; 80048; 80053; 80069; 80202; 82803; 83605; 83735; 83880; 84145; 84484; 85025; 85027; 87040; 87070; 87077; 87147; 87186; 87205; 93005; 93010; 94002; 94003; 94660; 94760; 96365; 96375; 97110; 97112; 97162; 97166; 97530; 99285-25; A9270; C1751; G0480; J0456; J0692; J1650; J1885; J2405; J2543; J2704; J2765; J3010; J3370; J3480; J7030; J7040; J7050; J7060; J7120

== ENCOUNTER 2022-03-06 15:26 | Observation (INO) | payer OTHER ==
[~2022-03-06] VITALS: Ht 154.9 cm; Wt 81.7 kg
[~2022-03-06 15:26] MED LIST changes: +BENAZEPRIL HCL20 M4 PO; +CARBIDOPA-LEVO1 EA15 PO; +HYDROCODONE-AC1 EAC7 PO; +LIDO700A20 TOP; +MELO7.5 PO; +OMEP20ER PO
[2022-03-06 16:35] LABS: BASOPHILS ABSOLUTE AUTO 0.05 K/mm3 (0.00-0.23); BASOPHILS PERCENT AUTO 1 % (0-2); EOSINOPHILS PERCENT AUTO 4 % (0-6); Hematocrit 36.9 % (33.0-51.0); Hemoglobin 11.9 g/dL (11.5-16.0); IMMATURE GRAN ABSOLUTE AUTO 0.02 K/mm3 (0.00-0.10); IMMATURE GRAN PERCENT AUTO 0 % (0-1); LYMPHOCYTES ABSOLUTE AUTO 1.95 K/mm3 (0.84-5.20); LYMPHOCYTES PERCENT AUTO 26 % (21-46); MONOCYTES ABSOLUTE AUTO 0.63 K/mm3 (0.16-1.47); MONOCYTES PERCENT AUTO 8 % (4-13); Mean Corpuscular HGB 27.5 pg (26.0-34.0); Mean Corpuscular HGB Conc 32.2 g/dL (31.5-36.5); Mean Corpuscular Volume 85 fL (80-100); Mean Platelet Volume 10.8 fL (9.1-12.4); NEUTROPHILS ABSOLUTE AUTO 4.68 K/mm3 (1.96-9.15); NEUTROPHILS PERCENT AUTO 61 % (41-73); Platelet Count 346 K/mm3 (150-400); RDW Coefficient Variation 15.4 % (11.7-14.2); RDW Standard Deviation 48.5 fL (35.1-46.3); Red Blood Cell Count 4.32 M/mm3 (3.80-5.20); White Blood Cell Count 7.63 K/mm3 (4.00-11.30)
[2022-03-06 17:01] LABS: Albumin, Blood 3.3 g/dL (3.4-5.0); Bilirubin, Total 0.3 mg/dL (0.1-1.0); Bun/Creatinine Ratio 17.2 (12.0-20.0); Calcium, Blood 8.8 mg/dL (8.5-10.1); Creatinine, Blood 2.27 mg/dL (0.40-1.00); Globulin, Blood 3.2 g/dL (2.2-4.0); Potassium, Blood 3.9 mmol/L (3.5-5.5); Total Protein, Blood 6.5 g/dL (6.4-8.2)
[2022-03-06] MEDS ORDERED: OXYCODONE-ACET1 EAC3 PO (19:14)
[2022-03-07 10:57] LABS: Influenza A, PCR NEGATIVE (NEGATIVE); Influenza B, PCR NEGATIVE (NEGATIVE); Resp Syncytial Virus, PCR NEGATIVE (NEGATIVE); SARS-Cov-2 (COVID-19) PCR, MMC NEGATIVE (NEGATIVE)
--- NOTE | 2022-03-07 12:34 | NUR ---
Review of patient with staff. Pt in ER awaiting placement. Symptom and life assessment conducted. Pt is alert and oriented. Patient denies headaches, blurred vision or ringing in her ears. She denies any trauma or falls. No obvious s/s of abuse. Pt has had some nausea and vomiting when pain is worse. She describes it as spasmotice shock or nerve pain across the top of her buttocks. States she has had MRO's to find cause with not result. Pt is mostly bedridden by hr statement. States she has struggled with sleep the past few weeks. She denies taking any homeopathic meds or medical marijuanna. She denies alcohol use. She states she is taking Ibuprophen in addition to pain medications. She has been wanting to drink more water and is voiding more she also complains f more anexiety. She is clean but looks slightly discheveled. She is very upset that their are ten children in the family and she cannot get care. She states they live beyaond their means and it is a problem. Asked pt if she wanted some spirtual support. She started cryin and stated she is a moravian but has not had the opportunity to interact with a confucianist for some time due to health issues. Sent angel luis to see pt. Notified APS to get family support as innapropriate to leave her at the ER. Review with director of casework servicestechnical programs manager states is still managing finances. Need to sort out if their is issue of competence or neglect and give this family the support it needs. Will continue to follow. Will review pt pain medications with physician. Pt may benefit for neuontin and cold therapy for nerve pain and to reduce narcotic use. Physical therapy to see pt for reccomendations of care.
--- NOTE | 2022-03-07 13:23 | NUR ---
Patient immediately voices her concerns about her pain levels and immobility. She then talks at length about her family unit complications, her complaints about the ED staff and her complaints about the [facility] outpatient staff that did not treat her well. Pt is clearly frustrated and hurting which is clouding her lens at this time. I talk with her about what is good, what is working and where she would like to see her plan of care go from here. As we talk she shows signs of an elevated mood and even admits to the possiblity that she might be the source of where the conflicts are coming from, at least with the medical staff. We also explore catholic and her thoughts about God, the Bible and ways to eternal life. I normalize her feelings, reinforce helpful attitudes, and provide therapeutic listening, gentle eap counselor, theological insights and prayer. Patient responds to prayer with much emotion and softening and voices the value of and her gratitude for the prayer. I will continue to remain available to patient and family.
[2022-03-07] MEDS ORDERED: MIRALAX17 GM PO (20:59)
[2022-03-07 22:18] LABS: Source, Urine Clean Catch
[2022-03-07 22:20] LABS: Bilirubin, Urine Neg (Neg); Blood, Urine 2+ (Neg); Glucose Qualitative, Urine Neg (Neg); Ketones, Urine Neg (Neg); Leukocyte Esterase, Urine 1+ (Neg); Nitrite, Urine Neg (Neg); Protein, Urine 1+ (Neg); Urobilinogen, Urine NORM (Normal)
[2022-03-07 22:37] LABS: Appearance, Urine Hazy (Clear); Bacteria Few /hpf; Color, Urine Yellow (P-Yellow); Squamous Epithelial Cells Rare /hpf (Few); Yeast/Fungi Urine Many /hpf
--- NOTE | 2022-03-08 04:22 | NUR ---
SHIFT SUMMARY 76 YR F ADMITTED ON 03/07/22 FOR INTRACTABLE LOWER BACK PAIN. DNR. PT IS UNABLE TO CARE FOR HERSELF DUE TO SEVERE BACK PAIN AND DECONDITIONING. SHE STATES THAT SHE CANNOT GET OUT OF BED TO GO TO THE BATHROOM. MYRNAPOLAGORGE WAS PLACED IN ED AND SEEMS TO BE WORKING WELL FOR THIS PT. PLAN IS FOR SNF PLACEMENT THROUGH IMPROVEMENT ENGINEER AND PT STATES SHE IS LOOKING FORWARD TO PHYSICAL THERAPY AND GETTING STRONGER. SHE IS A PLEASANT WOMAN AND APPEARS TO BE OPTIMISTIC ABOUT HER FUTURE.
[2022-03-08 05:40] LABS: Albumin, Blood 3.4 g/dL (3.4-5.0); Albumin/Globulin Ratio 1.1 (0.8-1.8); Bilirubin, Total 0.3 mg/dL (0.1-1.0); Bun/Creatinine Ratio 28.6 (12.0-20.0); Creatinine, Blood 1.12 mg/dL (0.40-1.00); Globulin, Blood 3.2 g/dL (2.2-4.0); Potassium, Blood 4.2 mmol/L (3.5-5.5); Total Protein, Blood 6.6 g/dL (6.4-8.2)
--- NOTE | 2022-03-08 17:54 | NUR ---
PT IS A/OX4, PLEASANT AND COOPERATIVE. THE PT HAS BEEN BEDREST TODAY DUE TO PAIN. THE PT WAS TITRATED OFF O2 AND APPEARS TO BE BREATHING EASILY ON RA AT THIS TIME. THE PT DECLINED PAIN MEDICATION TODAY. PT WORKED WITH THE PHYSICAL THERAPIST BED EXEECISES ONLY PER THE THERAPIST. PT HAD VISITORS TODAY. CALL LIGHT IN REACH. WILL CONTINUE TO MONITOR AND ASSESS FOR CHANGES
--- NOTE | 2022-03-09 05:19 | NUR ---
WREATH INSPECTOR SUMMARY PT AAOX4. ADMITTED FOR INTRACTABLE BACK PAIN; THIS REMAINS A HINDERENCE TO PROGRESSION OF CARE. PT UNABLE TO GET OOB; REPOSITIONING ELICITS EXTREME PAIN RESPONSES. MEDICATED X 2. PUREWICK REPLACED DUE TO INABILITY TO MANUEVER ONTO BEDPAN WITHOUT SEVERE PAIN. NO OTHER ISSUES BESIDES PAIN CONTROL THROUGHOUT SHIFT.
--- NOTE | 2022-03-09 18:37 | NUR ---
PT IS A/OX3, PLEASANT AND COOPERATIVE. THE PT HAS BEEN BEDREST DUE TO INTRACTABLE BACK PAIN. THE PT REPORTS DIZZINESS WHEN SHE TURNS OVER IN BED. THE PTS HR RATE ELEVATED THIS EVENING IT DID LAST EVENING SINUS TACH 110'S TO 120'S. PT IS ON TELE. PT WAS AGREEABLE TO TAKEING MEDICATION FOR PAIN AND WAS MEDICATED FOR PAIN X2 TODAY. PT HAS POOR ORAL INTAKE AND WAS ENCOURAGED TO DRINK FLUIDS T/O THE DAY. CALL LIGHT IN REACH. WILL CONTINUE TO MONITOR AND ASSESS FOR CHANGES.
--- NOTE | 2022-03-10 04:15 | NUR ---
LAST DIPPER SUMMARY AWAKE AT SHIFT COMMENCE, VOICED FEELING SCARED. BROTHER CAME IN TO VISIT FOR MORAL SUPPORT. AFTER BROTHER LEFT, PT VOICED FELT BETTER. TOLERATED MEDS WELL. PUREWICK IN USE. ABLE TO REPOSITION SELF IN BED. REMAINS ON BEDREST. HAS BEEN RESTING QUIETLY WITH FEW INTERRUPTIONS. CALL LIGHT IN REACH. SEE MAR FOR DETAILS OF IF AND WHEN PAIN MEDS GIVEN
[2022-03-10 05:24] LABS: Bun/Creatinine Ratio 23.8 (12.0-20.0); Calcium, Blood 8.9 mg/dL (8.5-10.1); Creatinine, Blood 0.76 mg/dL (0.40-1.00); Potassium, Blood 4.1 mmol/L (3.5-5.5)
[2022-03-10 12:22] LABS: BASOPHILS ABSOLUTE AUTO 0.03 K/mm3 (0.00-0.23); BASOPHILS PERCENT AUTO 0 % (0-2); EOSINOPHILS ABSOLUTE AUTO 0.27 K/mm3 (0.00-0.68); EOSINOPHILS PERCENT AUTO 4 % (0-6); Hematocrit 42.1 % (33.0-51.0); Hemoglobin 13.5 g/dL (11.5-16.0); IMMATURE GRAN ABSOLUTE AUTO 0.03 K/mm3 (0.00-0.10); IMMATURE GRAN PERCENT AUTO 0 % (0-1); LYMPHOCYTES ABSOLUTE AUTO 1.86 K/mm3 (0.84-5.20); LYMPHOCYTES PERCENT AUTO 27 % (21-46); MONOCYTES ABSOLUTE AUTO 0.42 K/mm3 (0.16-1.47); MONOCYTES PERCENT AUTO 6 % (4-13); Mean Corpuscular HGB 27.6 pg (26.0-34.0); Mean Corpuscular HGB Conc 32.1 g/dL (31.5-36.5); Mean Corpuscular Volume 86 fL (80-100); Mean Platelet Volume 10.3 fL (9.1-12.4); NEUTROPHILS ABSOLUTE AUTO 4.18 K/mm3 (1.96-9.15); NEUTROPHILS PERCENT AUTO 62 % (41-73); Platelet Count 342 K/mm3 (150-400); RDW Coefficient Variation 15.6 % (11.7-14.2); RDW Standard Deviation 49.5 fL (35.1-46.3); Red Blood Cell Count 4.89 M/mm3 (3.80-5.20); White Blood Cell Count 6.79 K/mm3 (4.00-11.30)
--- NOTE | 2022-03-10 18:45 | NUR ---
SHIFT SUMMARY- PT PAIN WAS NOT WELL MANAGED AT THE START OF THE SHIFT. MEDICATED Q4 FOR PAIN AND MEDICATED WITH Q8 MUSCLE RELAXERS. PT PAIN SEEMS WELL MANAGED LONG SHE REMAINS STILL. IV INFILTRATED THIS EVENING. NIGHT RN ARRIVED AND PLACED A NEW ONE THIS RN MEDICATED THE PT FOR PAIN. PT CURRENTLY BEING TAKEN TO MRI BY TRANSPORT NO S&S OF DITRESS NOTED. NIGHT RN WILL CONTINUE CARE WHEN PT RETURNS FROM MRI.
--- NOTE | 2022-03-11 06:11 | NUR ---
SHIFT SUMMARY PATIENT ALERT AND ORIENTED. MEDICATED PER EMAR FOR PAIN. HAD NO COMPLAINTS OF SHORTNESS OF BREATH. NO ACUTE ISSUES NOTED OVERNIGHT. CALL LIGHT WITHIN REACH. REPORT GIVEN TO ONCOMING RN.
--- NOTE | 2022-03-11 14:47 | NUR ---
Supportive visit this afternoon. Pt resting in bed and reports 5/10 pain. Discussed potential options for pain regimen including gabapentin if appropriate. Pt is agreeable. Called and spoke with Dr Claudio. Placed order for Gabapentin 100mg PO daily. Plan will be to increase dose slowly until therapeutic dose has been achieved. Palliative Care will remain available.
--- NOTE | 2022-03-11 19:43 | NUR ---
SHIFT SUMMARY- PT ALERT AND ORIENTED. SHE IS A 1-2PA FOR CHANGES AND BED BATHS. PT IS ABLE TO REPOSITION HERSELF IN THE BED. PAIN MEDICATION GIVEN FREQUENTLY T/O THE DAY. THE PT TENDS TO WAIT UNTIL THE PAIN IS OUT OF CONTROL BEFORE TAKING SÁNCHEZ MEDICATION SHE SEEMS AFRAID TO TAKE TOO MUCH. STAFF HAVE ENCOURAGED HER TO TAKE PAIN MEDICATION WHEN THE PAIN STARTS TO INCREASE TO ALLOW FOR BETTER PAIN MANAGEMENT AND ALLOW THE PT TO BE ABLE TO WORK WITH PHYSICAL THERAPY. IT SEEMS TO BE IMPROVING TODAY, PASSED ON TO NIGHT RN IN BEDSIDE REPORT. PT IN BED, CALL LIGHT IN REACH NO S&S OF DISTRESS NOTED AT THE TIME OF REPORT.
--- NOTE | 2022-03-12 11:37 | NUR ---
Pt resting in bed and reports 6/10 pain. She reports no difference in pain with her first dose of Gabapentin. She does express appreciation of effort and is agreeable with titrating medication to therapeutic dose. Offered actively listening and answered questions. Spoke with Dr Claudio and discussed case. Dr Claudio will increase Pt's Gabapentin. Palliative Care will remain available for symptom management.
--- NOTE | 2022-03-12 16:20 | NUR ---
SHIFT SUMMARY- PT WAS STARTED ON GABAPETIN TODAY AND HER PAIN ALREADY SEEMS TO BE A LITTLE MORE MANAGEABLE. SHE IS CURRENTLY IN BED WITH HER CALL LIGHT IN REACH LAUGHING AND VISITING WITH HER FAMILY. NO CURRENT S&S OF DISTRESS NOTED. WILL CTM AND PASS ON TO NIGHT RN IN BEDSIDE REPORT.
--- NOTE | 2022-03-13 16:19 | NUR ---
DAY SHIFT SUMMARY 76 YR OLD FEMALE WITH ITRACTABLE LOW BACK PAIN DUE TO T-12 COMPRESSION FRACTURE. PT IS ON RA AND A REGULAR DIET. WAITING FOR PLACEMENT. MEDICATED FOR PAIN PER EMAR. CALL LIGHT WITHIN REACH AND ABLE TO CALL APPROPRIATE.
--- NOTE | 2022-03-14 05:50 | NUR ---
SHIFT SUMMARY: PT IS ALERT AND ORIENTED. PT IS CALM AND COOPERATIVE WITH CARE. PT CALLS APPROPRIATELY. PT STILL HAVING BACK PAIN, NOT OUT OF BED OVERNIGHT, MEDICATING PER EMAR. PT DENIES NAUSEA, VOMITING, AND SOB. NO ACUTE CHANGES OR COMPLICATIONS THIS SHIFT. BED IN LOW POSITION, CALL LIGHT WITHIN REACH. WILL CONTINUE TO MONITOR.
[2022-03-14 11:24] LABS: Influenza A, PCR NEGATIVE (NEGATIVE); Influenza B, PCR NEGATIVE (NEGATIVE); Resp Syncytial Virus, PCR NEGATIVE (NEGATIVE); SARS-Cov-2 (COVID-19) PCR, MMC NEGATIVE (NEGATIVE)
[2022-03-14] MEDS ORDERED: CALCITONIN-SAL3.7 M1 (11:24)
[2022-03-14] MEDS ORDERED: DOCUZEN 8.6-501 EACH PO (11:24)
[2022-03-14] MEDS ORDERED: GABA100 PO (11:25)
[2022-03-14] MEDS ORDERED: HYDR1TAB94 PO (11:26)
[2022-03-14] MEDS ORDERED: THERA-D2000 UNIT PO (11:27)
--- NOTE | 2022-03-14 15:07 | NUR ---
Pt tells me about the d/c plan to [facility] and her hopes of regaining mobility. She speaks at length about her family unit complications and her attempts at reconciliation. She states that those attepts did not go well but that she will reserve making any major life decisions until after she has recovered physically. I provide theraeputic listening, conflict mediation and prayer. Patient responds well and shows signs of increased peace.
--- NOTE | 2022-03-14 16:34 | NUR ---
DISCHARGE SUMMARY PT'S IV REMOVED PRIOR TO DISCHARGE. PT TO BE DISCHARGED TO [facility]. CALLED FOR REPORT TO FACILITY. PERSONAL BELONGINGS GATHERED AND TRANSPORTED ALONG WITH PT VIA [facility]SP[facility].
== END 2022-03-14 16:09 ==
LOC: ER 15:26 → MEDS 03-07 15:27
PROVIDERS: Emergency Medicine; Internal Medicine; ADMIT Internal Medicine
DX: M48.54XA Collapsed vertebra, not elsewhere classified, thoracic region, initial encounter for fracture (principal); N17.9 Acute kidney failure, unspecified; J44.9 Chronic obstructive pulmonary disease, unspecified; I10 Essential (primary) hypertension; E03.9 Hypothyroidism, unspecified; E66.9 Obesity, unspecified; Z87.891 Personal history of nicotine dependence; Z73.6 Limitation of activities due to disability; X50.1XXA Overexertion from prolonged static or awkward postures, initial encounter
CPT/HCPCS: 0241U; 36415; 72158; 80048; 80053; 81001; 85025; 85651; 86140; 93005; 93010; 94760; 96374; 96375; 96376; 97110; 97112; 97140; 97162; 97530; 99285-25; A9270; A9579; G0378; J1100; J1170; J1644; J1885; J2310; J2405; J7030; J7120

== ENCOUNTER → 2022-05-24 | Outpatient (CLI) | payer OTHER ==
[~2022-05-24] MED LIST changes: +CALCITONIN-SAL3.7 M1; +DOCUZEN 8.6-501 EACH PO; +GABA100 PO; +HYDR1TAB94 PO; +OXYCODONE-ACET1 EAC3 PO; +THERA-D2000 UNIT PO
== END | disposition home or self-care (01) ==
LOC: LAB SHORT 13:15 → LAB 13:15
DX: R30.9 Painful micturition, unspecified (principal)
CPT/HCPCS: 87077; 87086; 87186

== ENCOUNTER 2022-11-28 07:27 | Emergency (ER) | payer OTHER ==
[~2022-11-28] VITALS: Ht 154.9 cm; Wt 72.6 kg
[2022-11-28] MEDS ORDERED: PRAMIPEXOLE D0.25 M1 PO (08:06)
[2022-11-28] MEDS ORDERED: CELE100 PO (08:06)
[2022-11-28] MEDS ORDERED: METOPROLOL SUCC25 MG PO (08:07)
[2022-11-28] MEDS ORDERED: CYCL10 PO (08:11)
[2022-11-28 08:50] LABS: BASOPHILS ABSOLUTE AUTO 0.05 K/mm3 (0.00-0.23); BASOPHILS PERCENT AUTO 1 % (0-2); EOSINOPHILS PERCENT AUTO 1 % (0-6); Hematocrit 37.6 % (33.0-51.0); IMMATURE GRAN ABSOLUTE AUTO 0.03 K/mm3 (0.00-0.10); IMMATURE GRAN PERCENT AUTO 0 % (0-1); LYMPHOCYTES ABSOLUTE AUTO 2.07 K/mm3 (0.84-5.20); LYMPHOCYTES PERCENT AUTO 24 % (21-46); MONOCYTES ABSOLUTE AUTO 0.38 K/mm3 (0.16-1.47); MONOCYTES PERCENT AUTO 4 % (4-13); Mean Corpuscular HGB 31.3 pg (26.0-34.0); Mean Corpuscular HGB Conc 31.9 g/dL (31.5-36.5); Mean Corpuscular Volume 98 fL (80-100); Mean Platelet Volume 10.1 fL (9.1-12.4); NEUTROPHILS ABSOLUTE AUTO 6.08 K/mm3 (1.96-9.15); NEUTROPHILS PERCENT AUTO 70 % (41-73); Platelet Count 294 K/mm3 (150-400); RDW Coefficient Variation 14.2 % (11.7-14.2); RDW Standard Deviation 51.1 fL (35.1-46.3); Red Blood Cell Count 3.83 M/mm3 (3.80-5.20); White Blood Cell Count 8.71 K/mm3 (4.00-11.30)
[2022-11-28 09:14] LABS: Albumin, Blood 3.6 g/dL (3.4-5.0); Albumin/Globulin Ratio 1.2 (0.8-1.8); Bilirubin, Total 0.2 mg/dL (0.1-1.0); Bun/Creatinine Ratio 25.2 (12.0-20.0); Calcium, Blood 8.7 mg/dL (8.5-10.1); Creatinine, Blood 0.64 mg/dL (0.40-1.00); Globulin, Blood 2.9 g/dL (2.2-4.0); Potassium, Blood 3.8 mmol/L (3.5-5.5); Total Protein, Blood 6.5 g/dL (6.4-8.2)
[2022-11-28 09:26] LABS: Source, Urine Clean Catch
[2022-11-28 09:40] LABS: Appearance, Urine Clear (Clear); Bilirubin, Urine Neg (Neg); Blood, Urine Neg (Neg); Color, Urine Yellow (P-Yellow); Glucose Qualitative, Urine Neg (Neg); Ketones, Urine Neg (Neg); Leukocyte Esterase, Urine Neg (Neg); Nitrite, Urine Neg (Neg); Protein, Urine 1+ (Neg); Specific Gravity, Urine 1.015 (1.003-1.022); Urobilinogen, Urine NORM (Normal)
== END 2022-11-28 21:20 | disposition short-term general hospital (02) ==
LOC: ER 07:27
PROVIDERS: Emergency Medicine
DX: S22.089A Unspecified fracture of T11-T12 vertebra, initial encounter for closed fracture (principal); X58.XXXA Exposure to other specified factors, initial encounter; Z79.899 Other long term (current) drug therapy; I10 Essential (primary) hypertension; G47.00 Insomnia, unspecified; E78.5 Hyperlipidemia, unspecified; E03.9 Hypothyroidism, unspecified; J44.9 Chronic obstructive pulmonary disease, unspecified; Z87.891 Personal history of nicotine dependence
CPT/HCPCS: 36415; 72148; 73502; 74177; 80053; 85025; 96374-59; 96375; 96376; 99285-25; J2270; J2405; Q9967

== ENCOUNTER 2023-03-31 10:43 | Emergency (ER) | payer OTHER ==
[~2023-03-31] VITALS: Ht 154.9 cm; Wt 69.8 kg
[~2023-03-31 10:43] MED LIST changes: +CELE100 PO; +CYCL10 PO; +METOPROLOL SUCC25 MG PO; +PRAMIPEXOLE D0.25 M1 PO
[2023-03-31 11:28] LABS: BASOPHILS ABSOLUTE AUTO 0.07 K/mm3 (0.00-0.23); BASOPHILS PERCENT AUTO 1 % (0-2); EOSINOPHILS PERCENT AUTO 4 % (0-6); Hematocrit 43.4 % (33.0-51.0); Hemoglobin 13.7 g/dL (11.5-16.0); IMMATURE GRAN ABSOLUTE AUTO 0.03 K/mm3 (0.00-0.10); IMMATURE GRAN PERCENT AUTO 0 % (0-1); LYMPHOCYTES ABSOLUTE AUTO 2.65 K/mm3 (0.84-5.20); LYMPHOCYTES PERCENT AUTO 32 % (21-46); MONOCYTES ABSOLUTE AUTO 0.42 K/mm3 (0.16-1.47); MONOCYTES PERCENT AUTO 5 % (4-13); Mean Corpuscular HGB 27.8 pg (26.0-34.0); Mean Corpuscular HGB Conc 31.6 g/dL (31.5-36.5); Mean Corpuscular Volume 88 fL (80-100); Mean Platelet Volume 10.7 fL (9.1-12.4); NEUTROPHILS ABSOLUTE AUTO 4.75 K/mm3 (1.96-9.15); NEUTROPHILS PERCENT AUTO 58 % (41-73); Platelet Count 342 K/mm3 (150-400); RDW Coefficient Variation 15.3 % (11.7-14.2); RDW Standard Deviation 49.4 fL (35.1-46.3); Red Blood Cell Count 4.93 M/mm3 (3.80-5.20); White Blood Cell Count 8.22 K/mm3 (4.00-11.30)
[2023-03-31 11:55] LABS: Albumin, Blood 4.2 g/dL (3.4-5.0); Albumin/Globulin Ratio 1.2 (0.8-1.8); Bilirubin, Total 0.2 mg/dL (0.1-1.0); Bun/Creatinine Ratio 38.3 (12.0-20.0); Calcium, Blood 10.1 mg/dL (8.5-10.1); Creatinine, Blood 0.81 mg/dL (0.40-1.00); Globulin, Blood 3.6 g/dL (2.2-4.0); Total Protein, Blood 7.8 g/dL (6.4-8.2)
[2023-03-31 15:26] LABS: Source, Urine Clean Catch
[2023-03-31 15:42] LABS: Appearance, Urine Clear (Clear); Bilirubin, Urine Neg (Neg); Blood, Urine Neg (Neg); Color, Urine Yellow (P-Yellow); Glucose Qualitative, Urine Neg (Neg); Ketones, Urine Neg (Neg); Leukocyte Esterase, Urine Neg (Neg); Nitrite, Urine Neg (Neg); Protein, Urine Neg (Neg); Urobilinogen, Urine NORM (Normal)
[2023-03-31] MEDS ORDERED: Omeprazole20 M1 PO (16:13)
[2023-03-31] MEDS ORDERED: HYDR1TAB94 PO (16:13)
[2023-03-31] MEDS ORDERED: PROM25 PO (16:13)
[2023-03-31 17:08] VITALS: BP 162/82
== END 2023-03-31 17:24 | disposition home or self-care (01) ==
LOC: ER 10:43
PROVIDERS: Physician Assistant
DX: K85.90 Acute pancreatitis without necrosis or infection, unspecified (principal); K21.9 Gastro-esophageal reflux disease without esophagitis; R30.0 Dysuria; I10 Essential (primary) hypertension; G47.00 Insomnia, unspecified; F51.9 Sleep disorder not due to a substance or known physiological condition, unspecified; E78.5 Hyperlipidemia, unspecified; E03.9 Hypothyroidism, unspecified; J44.9 Chronic obstructive pulmonary disease, unspecified; F17.210 Nicotine dependence, cigarettes, uncomplicated; Z88.8 Allergy status to other drugs, medicaments and biological substances; Z88.5 Allergy status to narcotic agent; Z79.899 Other long term (current) drug therapy
CPT/HCPCS: 80053; 81003; 83690; 83735; 85025; 96361; 96374; 96375; 99283-25; A9270; J1170; J2405; J7030